=== PATIENT | male | born 1960 | race Hispanic/Latino ===

== ENCOUNTER 2019-10-15 12:04 | Emergency (ER) | payer MEDICARE ==
[~2019-10-15] VITALS: Ht 167.6 cm; Wt 90.3 kg
--- OUTSIDE RECORDS SUMMARY | 2019-10-15 12:10 | XMS REPORT ---
[facility] Address Unknown Phone Unavailable Care Team Providers Care Activities Specialist Name Role Phone ANAHI HUERTA Unavailable Unavailable Payers Payer Name Policy Type Policy Number Effective Date Expiration Date Problems This patient has no known problems. Allergies, Adverse Reactions, Alerts Allergy Name Allergy Type Status Severity Reaction(s) Onset Date Inactive Date Treating Clinician Comments No Known Allergies DA Active U 2019-05-20 00:00:00 No Known Allergies DA Active U 2018-01-11 00:00:00 No Known Allergies DA Active U 2017-09-13 00:00:00 Medications This patient has no known medications. Results Test Description Test Time Test Comments Text Results Atomic Results Result Comments GLUBED 2019-05-24 16:58:00 GLUBED (test code=GLUBED) 164 mg/dL 74-106 [facility] [id number] 12:05:00* Test Item Value Reference Range Comments GLUBED (test code=GLUBED) 172 mg/dL 74-106 [facility]formed by certified blacksmith hammer [facility] [id number] 11:39:00* Test Item Value Reference Range Comments GLUBED (test code=GLUBED) 139 mg/dL 74-106 Performed by certified blacksmith hammer operator at [facility] AB HEPATITIS B [id number] 11:10:00* Test Item Value Reference Range Comments AB HEPATITIS B SURFACE (test code=HBSAB) Reactive () Non Reactive: Inconsistent with immunity, less than 10 mIU/mL Reactive: Consistent with immunity, greater than 9.9 mIU/mLPerformed At: [facility] [id number] [place], [place] [id number] [place]o Monique MD Ph:[phone] [id number] 20:39:00* Test Item Value Reference Range Comments GLUBED (test code=GLUBED) 226 mg/dL 74-106 Performed by certified blacksmith hammer operator at [facility] [id number] 17:35:00* Test Item Value Reference Range Comments GLUBED (test code=GLUBED) 181 mg/dL 74-106 Performed by certified blacksmith hammer operator at [facility] - XR CHEST 2 [id number] 15:45:00 FAX: Phylicia Perla Massey: B St: ADM FAX: Sahil Zamudio MD [phone] Name: TESS QUEZADA [facility] : 1960 Age/S: 58/M [address] [facility] Unit #: [id number] Loc: V.2058 [place] [address] Phys: Phylicia Pearson MD Acct: [id number] Dis Date: Status: ADM IN PHONE #: [phone] Exam Date: 05/23/2019 1532 FAX #: [phone] Reason: follow up on pulm edema EXAMS: CPT CODE: [id number] XR CHEST 2 V 43242 REASON FOR EXAM: follow up on pulm edema Exam Order Date: 05/23/2019 12:00 AM Ordering Babak: Phylicia Pearson MD PROCEDURE: - XR CHEST 2 V COMPARISON: 2 view chest x-ray May 20, 2019 FINDINGS: There are small bilateral pleural effusions and there are opacities in the left lung base which may represent any combination of atelectatic changes and consolidations. However when compared to the prior examination, the lungs are better aerated. The cardiomediastinal silhouette is widened but stable in size. Degenerative changes throughout the spine and in the bilateral acromioclavicular joints appear similar to the previous study. The visua lized upper abdomen is within normal limits. IMPRESSION: Improved aeration of both lungs. However small bilateral pleural effusions and left lung base subsegmental atelectatic changes remain. at 1542 Reported and signed by: Alex Durbin MD CC: Yamileth Pearson MD; Sahil Her MD Technologist: CHEPE COSTA Trnnerd Date/Time/By: 05/23/2019 (8945) : By: Kristin DavisRR31 Orig Print D/T: S: 05/23/2019 (6666) PAG E 1 Signed Report GLUBED 2019-05-23 07:12:00* Test Item Value Reference Range Comments GLUBED (test code=GLUBED) 126 mg/dL 74-106 Performed by certified blacksmith hammer operator [facility] [id number] 21:41:00* Test Item Value Reference Range Comments GLUBED (test code=GLUBED) 179 mg/dL 74-106 Performed by certified blacksmith hammer operator [facility]~ [id number] 17:42:00* Test Item Value Reference Range Comments GLUBED (test code=GLUBED) 133 mg/dL 74-106 Performed by certified blacksmith hammer operator at [facility] [id number] 12:43:00* Test Item Value Reference Range Comments GLUBED (test code=GLUBED) 137 mg/dL 74-106 Performed by certified blacksmith hammer operator at [facility] [id number] 06:59:00* Test Item Value Reference Range Comments GLUBED (test code=GLUBED) 127 mg/dL 74-106 Performed by certified blacksmith hammer operator [facility] BASIC METABOLIC [id number] 05:05:00* Test Item Value Reference Range Comments SODIUM (test code=NA) 141 mmol/L 136-145 POTASSIUM (test code=K) 4.4 mmol/L 3.5-5.1 CHLORIDE (test code=CL) 103.0 mmol/L 98-107 CARBON DIOXIDE (test code=CO2) 28.0 mmol/L 21-32 ANION GAP (test code=GAP) 14.4 10-20 GLUCOSE (test code=GLU) 117 mg/dL 74-106 BLOOD UREA NITROGEN (test code=BUN) 42 mg/dL 7-18 GLOMERULAR FILTRATION RATE (test code=GFR) 8 mL/min >=60 Estimated GFR by using Modified MDRD formula.Chronic kidney disease is defined as either kidney damageor GFR <60 mL/min/1.73 m2 for >3 months. CREATININE (test code=CREAT) 7.40 mg/dL 0.7-1.3 BUN/CREATININE RATIO (test code=BUN/CREA) 5.7 10-20 CALCIUM (test code=CA) 8.0 mg/dL 8.5-10.1 CBC W/AUTO [id number] 04:50:00* Test Item Value Reference Range Comments WHITE BLOOD CELL (test code=WBC) 7.0 K/mm3 4.5-12.5 RED BLOOD CELL (test code=RBC) 3.26 mill/mm3 4.0-5.8 HEMOGLOBIN (test code=HGB) 9.7 gram/dL 13.0-17.5 HEMATOCRIT (test code=HCT) 31.8 % 42.0-52.0 MEAN CELL VOLUME (test code=MCV) 97.5 fL 80-98 MEAN CELL HGB (test code=MCH) 29.8 picogram 27.0-33.0 MEAN CELL HGB CONCETRATION (test code=MCHC) 30.5 gram/dL 33.0-36.0 RED CELL DISTRIBUTION WIDTH (test code=RDW) 13.0 % 11.6-16.2 RED CELL DISTRIBUTION WIDTH SD (test code=RDW-SD) 46.3 fL 37.0-51.0 PLATELET COUNT (test code=PLT) 198 K/mm3 150-450 MEAN PLATELET VOLUME (test code=MPV) 12.2 fL 6.7-11.0 NEUTROPHIL % (test code=NT%) 71.2 % 39.0-69.0 IMMATURE GRANULOCYTE % (test code=IG%) 0.4 % 0.0-5.0 LYMPHOCYTE % (test code=LY%) 14.1 % 25.0-55.0 MONOCYTE % (test code=MO%) 8.9 % 0.0-10.0 EOSINOPHIL % (test code=EO%) 4.7 % 0.0-5.0 BASOPHIL % (test code=BA%) 0.7 % 0.0-1.0 NUCLEATED RBC % (test code=NRBC%) 0.0 % 0-0 NEUTROPHIL # (test code=NT#) 4.94 K/mm3 1.8-7.7 IMMATURE GRANULOCYTE # (test code=IG#) 0.03 x10 3/uL 0-0.03 LYMPHOCYTE # (test code=LY#) 0.98 K/mm3 1.0-5.0 MONOCYTE # (test code=MO#) 0.62 K/mm3 0-0.8 EOSINOPHIL # (test code=EO#) 0.33 K/mm3 0.0-0.5 BASOPHIL # (test code=BA#) 0.05 K/mm3 0.0-0.2 NUCLEATED RBC # (test code=NRBC#) 0.00 K/mm3 0.0-0.1 [id number] 20:49:00* Test Item Value Reference Range Comments GLUBED (test code=GLUBED) 209 mg/dL 74-106 Performed by certified blacksmith hammer operator [facility]~ [id number] 17:20:00* Test Item Value Reference Range Comments GLUBED (test code=GLUBED) 140 mg/dL 74-106 Performed by certified blacksmith hammer operator at [facility] [id number] 14:08:00* Test Item Value Reference Range Comments GLUBED (test code=GLUBED) 131 mg/dL 74-106 Performed by certified blacksmith hammer operator at [facility] AG HEPAT B [id number] 06:45:00* Test Item Value Reference Range Comments AG HEPAT B SURF (test code=HBSAG) Nonreactive Index Nonreactive [id number] 05:37:00* Test Item Value Reference Range Comments GLUBED (test code=GLUBED) 130 mg/dL 74-106 Performed by certified blacksmith hammer operator at [facility] BASIC METABOLIC [id number] 03:18:00* Test Item Value Reference Range Comments SODIUM (test code=NA) 142 mmol/L 136-145 POTASSIUM (test code=K) 5.6 mmol/L 3.5-5.1 RESULT VERIFIED BY REPEAT ANALYSIS CHLORIDE (test code=CL) 105.0 mmol/L 98-107 CARBON DIOXIDE (test code=CO2) 22.0 mmol/L 21-32 ANION GAP (test code=GAP) 20.6 10-20 GLUCOSE (test code=GLU) 174 mg/dL 74-106 BLOOD UREA NITROGEN (test code=BUN) 79 mg/dL 7-18 GLOMERULAR FILTRATION RATE (test code=GFR) 5 mL/min >=60 Estimated GFR by using Modified MDRD formula.Chronic kidney disease is defined as either kidney damageor GFR <60 mL/min/1.73 m2 for >3 months. CREATININE (test code=CREAT) 10.40 mg/dL 0.7-1.3 BUN/CREATININE RATIO (test code=BUN/CREA) 7.6 10-20 CALCIUM (test code=CA) 8.7 mg/dL 8.5-10.1 B-TYPE NATRIURETIC [id number] 21:42:00* Test Item Value Reference Range Comments B-TYPE NATRIURETIC PEPTIDE (test code=BNP) 1880.69 pgram/mL 0-100 BASIC METABOLIC [id number] 21:36:00* Test Item Value Reference Range Comments SODIUM (test code=NA) 138 mmol/L 136-145 POTASSIUM (test code=K) 6.8 mmol/L 3.5-5.1 Results called to by ARTIS 05/20/19 2136Critical results verified and read back by Nurse? Y CHLORIDE (test code=CL) 104.0 mmol/L 98-107 CARBON DIOXIDE (test code=CO2) 24.0 mmol/L 21-32 ANION GAP (test code=GAP) 16.8 10-20 GLUCOSE (test code=GLU) 109 mg/dL 74-106 BLOOD UREA NITROGEN (test code=BUN) 72 mg/dL 7-18 GLOMERULAR FILTRATION RATE (test code=GFR) 5 mL/min >=60 Estimated GFR by using Modified MDRD formula.Chronic kidney disease is defined as either kidney damageor GFR <60 mL/min/1.73 m2 for >3 months. CREATININE (test code=CREAT) 10.10 mg/dL 0.7-1.3 BUN/CREATININE RATIO (test code=BUN/CREA) 7.1 10-20 CALCIUM (test code=CA) 8.1 mg/dL 8.5-10.1 HEPATIC FUNCTION [id number] 21:36:00* Test Item Value Reference Range Comments TOTAL PROTEIN (test code=PROT) 7.8 gram/dL 6.4-8.2 ALBUMIN (test code=ALB) 3.5 g/dL 3.4-5.0 GLOBULIN (test code=GLOB) 4.3 gram/dL 2.7-4.2 ALBUMIN/GLOBULIN RATIO (test code=A/G) 0.8 0.75-1.50 BILIRUBIN TOTAL (test code=BILT) 0.50 mg/dL 0.0-1.0 BILIRUBIN DIRECT (test code=BILD) 0.14 mg/dL 0.0-0.20 SGOT/AST (test code=AST) 7 IUnit/L 15-37 SGPT/ALT (test code=ALT) 11 IUnit/L 12-78 ALKALINE PHOSPHATASE TOTAL (test code=ALKP) 91 IUnit/L 45-117 Note change in reference range due to change in reagent. [id number] 21:36:00* Test Item Value Reference Range Comments LIPASE (test code=LIP) 288 U/L 73.0-393.0 [id number] 21:36:00* Test Item Value Reference Range Comments MAGNESIUM (test code=MAG) 2.4 mg/dL 1.8-2.4 [id number] 21:36:00* Test Item Value Reference Range Comments TROPONIN-I (test code=TROPI) <0.015 ng/mL 0-0.045 PROTHROMBIN [id number] 21:05:00* Test Item Value Reference Range Comments PROTHROMBIN TIME PATIENT (test code=PTP) 11.5 seconds 9.0-14.0 INTERNATIONAL NORMAL RATIO (test code=INR) 1.0 0.8-1.2 The therapeutic range for oral anticoagulant therapy formost indications is an international normalized ratio (INR)of between 2.0 and 3.0. The recommended therapeutic INRrange for various clinical situations is listed below: Clinical Situation INR range Pulmonary e mbolism treatment (2.0-3.0)Venous thrombosis treatmentVenous thrombosis prophylaxis (high risk surgery)Prevention of systemic embolism from: Acute myocardial infarction Valvular heart disease Atrial fibrillation Mechanical prosthetic heart valves (2.5-3.5) IS PATIENT ON ANTICOAGULANTS? NTHROMBOPLASTIN TIME [id number] 21:05:00* Test Item Value Reference Range Comments THROMBOPLASTIN TIME PARTIAL (test code=PTT) 32.9 seconds 25.0-36.5 IS PATIENT ON ANTICOAGULANTS? NCBC W/O [id number] 20:47:00* Test Item Value Reference Range Comments WHITE BLOOD CELL (test code=WBC) 9.5 K/mm3 4.5-12.5 RED BLOOD CELL (test code=RBC) 3.28 mill/mm3 4.0-5.8 HEMOGLOBIN (test code=HGB) 9.9 gram/dL 13.0-17.5 HEMATOCRIT (test code=HCT) 31.8 % 42.0-52.0 MEAN CELL VOLUME (test code=MCV) 97.0 fL 80-98 MEAN CELL HGB (test code=MCH) 30.2 picogram 27.0-33.0 MEAN CELL HGB CONCETRATION (test code=MCHC) 31.1 gram/dL 33.0-36.0 RED CELL DISTRIBUTION WIDTH (test code=RDW) 13.0 % 11.6-16.2 PLATELET COUNT (test code=PLT) 181 K/mm3 150-450 MEAN PLATELET VOLUME (test code=MPV) 12.1 fL 6.7-11.0 - XR CHEST 2 [id number] 19:44:00 FAX: Manisha Wadsworth [phone] Massey: B St: REG Name: TESS ARELLANO [facility] : [birth year] Age/S: 58/M [address] [facility] Unit #: [id number] Loc: V.[place] [address] Phys: Manisha Sepulveda MD Acct: [id number] Dis Date: Status: REG ER PHONE #: [phone] Exam Date: 05/20/20191931 FAX #: [phone] Reason: SOB EXAMS: CPT CODE: [id number] XR CHEST 2 V 94339 REASON FOR EXAM: SOB Exam Order Date: 05/20/2019 7:10 PM Ordering M.David: Manisha Sepulveda MD PROCEDURE: - XR CHEST 2 V COMPARISON: Frontal chest x-ray January 11, 2018 FINDINGS: There are small pleural effusions bilaterally with compressive atelectasis of the under lying lungs. There are also reticular opacities in both lungs with Pk B lines in the mid to lower lungs. Cardiomediastinal silhouette is enlarge d but stable in size. Degenerative changes of the spine and should ers are redemonstrated. The visualized upper abdomen is within nor mal limits. IMPRESSION: Findings of CHF with pul monary edema in the mid to lower lungs and small bilateral pleural effus ions. Superimposed infection would be difficult to exclude. at 1944 Reported and signed by: Alex Durbin MD CC: Manisha Sepulveda MD Technologist: Juli Lemus(R) Trnscrd Date/Time/By: 05/20/2019 (1943) : By: [email or web address] Orig Print D/T: S: 05/20/2019 (1946) PAGE 1 Signed Report - XR CHEST 2 V 2019-05-20 19:44:00 FAX: Manisha Wadsworth [phone] Massey: B St: ADM Name: TESS ARELLANO [facility] : [birth year] Age/S: 58/M [address] [facility] Unit #: [id number] Loc: V.2058 [place] [address] Phys: Manisha Sepulveda MD Acct: [id number] Dis Date: Status: ADM IN PHONE #: [phone] Exam Date: 05/20/20191931 FAX #: [phone] Reason: SOB EXAMS: CPT CODE: [id number] XR CHEST 2 V 22832 REASON FOR EXAM: SOB Exam Order Date: 05/20/2019 7:10 PM Ordering M.D.: Manisha Sepulveda MD PROCEDURE: - XR CHEST 2 V COMPARISON: Frontal chest x-ray January 11, 2018 FINDINGS: There are small pleural effusions bilaterally with compressive atelectasis of the under lying lungs. There are also reticular opacities in both lungs with Pk B lines in the mid to lower lungs. Cardiomediastinal silhouette is enlarge d but stable in size. Degenerative changes of the spine and should ers are redemonstrated. The visualized upper abdomen is within nor mal limits. IMPRESSION: Findings of CHF with pul monary edema in the mid to lower lungs and small bilateral pleural effus ions. Superimposed infection would be difficult to exclude. at 1944 Reported and signed by: Alex Durbin MD CC: Manisha Sepulveda MD Technologist: Juli Garcia) Trnscrd Date/Time/By: 05/20/2019 (1943) : By: [email or web address] Orig Print D/T: S: 05/20/2019 (1946) PAGE 1 Signed Report QUANTIFERON TEST 2018-12-11 15:11:00* Test Item Value Reference Range Comments QUANTIFERON TEST (test code=QFTT) Negative Negative The specimen received for QuantiFERON testing was incubatedby the ordering institution. Specific procedures outlinedin our Directory of Services and in the package insert forthe QuantiFERON Gold (In Tube) test must be followed toenable for proper stimulation of cells for the productionof interferon gamma.Performed At: [facility] [id number] Sanjai MD P h:[id number] HEPARIN INDUCED [id number] 11:09:00* Test Item Value Reference Range Comments HEPARIN INDUCED THROMBOCYTOPEN (test code=HIT) NEGATIVE NEGATIVE CBC W/AUTO [id number] 05:05:00* Test Item Value Reference Range Comments WHITE BLOOD CELL (test code=WBC) 5.5 K/mm3 4.5-12.5 RED BLOOD CELL (test code=RBC) 3.88 mill/mm3 4.0-5.8 HEMOGLOBIN (test code=HGB) 11.6 gram/dL 13.0-17.5 RESULT VERIFIED BY REPEAT ANALYSIS HEMATOCRIT (test code=HCT) 37.5 % 42.0-52.0 MEAN CELL VOLUME (test code=MCV) 96.6 fL 80-98 MEAN CELL HGB (test code=MCH) 29.9 picogram 27.0-33.0 MEAN CELL HGB CONCETRATION (test code=MCHC) 30.9 gram/dL 33.0-36.0 RED CELL DISTRIBUTION WIDTH (test code=RDW) 12.7 % 11.6-16.2 RED CELL DISTRIBUTION WIDTH SD (test code=RDW-SD) 44.8 fL 37.0-51.0 PLATELET COUNT (test code=PLT) 134 K/mm3 150-450 MEAN PLATELET VOLUME (test code=MPV) 12.6 fL 6.7-11.0 NEUTROPHIL % (test code=NT%) 58.1 % 39.0-69.0 IMMATURE GRANULOCYTE % (test code=IG%) 0.9 % 0.0-5.0 LYMPHOCYTE % (test code=LY%) 19.6 % 25.0-55.0 MONOCYTE % (test code=MO%) 15.8 % 0.0-10.0 EOSINOPHIL % (test code=EO%) 5.1 % 0.0-5.0 BASOPHIL % (test code=BA%) 0.5 % 0.0-1.0 NUCLEATED RBC % (test code=NRBC%) 0.0 % 0-0 NEUTROPHIL # (test code=NT#) 3.17 K/mm3 1.8-7.7 IMMATURE GRANULOCYTE # (test code=IG#) 0.05 x10 3/uL 0-0.03 LYMPHOCYTE # (test code=LY#) 1.07 K/mm3 1.0-5.0 MONOCYTE # (test code=MO#) 0.86 K/mm3 0-0.8 EOSINOPHIL # (test code=EO#) 0.28 K/mm3 0.0-0.5 BASOPHIL # (test code=BA#) 0.03 K/mm3 0.0-0.2 NUCLEATED RBC # (test code=NRBC#) 0.00 K/mm3 0.0-0.1 BASIC METABOLIC [id number] 12:26:00* Test Item Value Reference Range Comments SODIUM (test code=NA) 136 mmol/L 136-145 POTASSIUM (test code=K) 4.0 mmol/L 3.5-5.1 CHLORIDE (test code=CL) 99.0 mmol/L 98-107 CARBON DIOXIDE (test code=CO2) 21.0 mmol/L 21-32 ANION GAP (test code=GAP) 20.0 10-20 GLUCOSE (test code=GLU) 63 mg/dL 74-106 BLOOD UREA NITROGEN (test code=BUN) 52 mg/dL 7-18 RESULT VERIFIED BY REPEAT ANALYSIS GLOMERULAR FILTRATION RATE (test code=GFR) 6 mL/min >=60 Estimated GFR by using Modified MDRD formula.Chronic kidney disease is defined as either kidney damageor GFR <60 mL/min/1.73 m2 for >3 months. CREATININE (test code=CREAT) 9.30 mg/dL 0.7-1.3 BUN/CREATININE RATIO (test code=BUN/CREA) 5.6 10-20 CALCIUM (test code=CA) 7.5 mg/dL 8.5-10.1 - XR ABDOMEN AP 1 [id number] 09:34:00 FAX: Brandi Traylor MD [phone] Massey: B St: ADM FAX: Johnathan Gutierres [phone] Name: TESS QUEZADA [facility] : 1960 Age/S: 58/M [address] [facility] Unit #: [id number] Loc: V.5010 [place] [address] Phys: Johnathan Gutierres MD Acct: [id number] Dis Date: Status: ADM IN PHONE #: [phone] Exam Date: 12/09/2018904 FAX #: [phone] Reason: F/U SBO EXAMS: CPT CODE: [id number] XR ABDOMEN AP 1 V 10539 HISTORY: Small bowel obstruction TECHNIQUE: AP a bdomen x-ray COMPARISON: CT 12/06/18 FINDINGS: Mild ly improved dilated small bowel within the upper abdomen. Bowel gas observ ed within the colon. No intra-abdominal mass effect. No abnormal calcifica tions are observed. Mild degenerative changes of the spine and hips. IMPRESSION: Mildly improved dilated small bowel within the upper abdomen. at 0934 Reported and signed by: Alaina Rankin CC: Brandi Timmons MD; Johnathan Gutierres MD Technologist: LEXUS STEEN (R) Trn scrd Date/Time/By: 12/09/2018 (0934) : By: [email or web address] Orig Print D/T: S : 12/09/2018 (0937) PAGE 1 Signed Report BASIC METABOLIC [id number] 07:32:00* Test Item Value Reference Range Comments SODIUM (test code=NA) 136 mmol/L 136-145 POTASSIUM (test code=K) 4.0 mmol/L 3.5-5.1 CHLORIDE (test code=CL) 99.0 mmol/L 98-107 CARBON DIOXIDE (test code=CO2) 21.0 mmol/L 21-32 ANION GAP (test code=GAP) 20.0 10-20 GLUCOSE (test code=GLU) 63 mg/dL 74-106 BLOOD UREA NITROGEN (test code=BUN) 52 mg/dL 7-18 GLOMERULAR FILTRATION RATE (test code=GFR) 6 mL/min >=60 Estimated GFR by using Modified MDRD formula.Chronic kidney disease is defined as either kidney damageor GFR <60 mL/min/1.73 m2 for >3 months. CREATININE (test code=CREAT) 9.30 mg/dL 0.7-1.3 BUN/CREATININE RATIO (test code=BUN/CREA) 5.6 10-20 CALCIUM (test code=CA) 7.5 mg/dL 8.5-10.1 BASIC METABOLIC [id number] 10:49:00* Test Item Value Reference Range Comments SODIUM (test code=NA) 133 mmol/L 136-145 POTASSIUM (test code=K) 6.0 mmol/L 3.5-5.1 CHLORIDE (test code=CL) 94.0 mmol/L 98-107 CARBON DIOXIDE (test code=CO2) 17.0 mmol/L 21-32 ANION GAP (test code=GAP) 28.0 10-20 GLUCOSE (test code=GLU) 74 mg/dL 74-106 BLOOD UREA NITROGEN (test code=BUN) 98 mg/dL 7-18 GLOMERULAR FILTRATION RATE (test code=GFR) 4 mL/min >=60 Estimated GFR by using Modified MDRD formula.Chronic kidney disease is defined as either kidney damageor GFR <60 mL/min/1.73 m2 for >3 months. CREATININE (test code=CREAT) 14.10 mg/dL 0.7-1.3 BUN/CREATININE RATIO (test code=BUN/CREA) 7.0 10-20 CALCIUM (test code=CA) 7.7 mg/dL 8.5-10.1 CBC W/AUTO [id number] 05:50:00* Test Item Value Reference Range Comments WHITE BLOOD CELL (test code=WBC) 5.4 K/mm3 4.5-12.5 RED BLOOD CELL (test code=RBC) 4.50 mill/mm3 4.0-5.8 HEMOGLOBIN (test code=HGB) 13.6 gram/dL 13.0-17.5 HEMATOCRIT (test code=HCT) 44.9 % 42.0-52.0 MEAN CELL VOLUME (test code=MCV) 99.8 fL 80-98 MEAN CELL HGB (test code=MCH) 30.2 picogram 27.0-33.0 MEAN CELL HGB CONCETRATION (test code=MCHC) 30.3 gram/dL 33.0-36.0 RED CELL DISTRIBUTION WIDTH (test code=RDW) 13.0 % 11.6-16.2 RED CELL DISTRIBUTION WIDTH SD (test code=RDW-SD) 47.5 fL 37.0-51.0 PLATELET COUNT (test code=PLT) 155 K/mm3 150-450 MEAN PLATELET VOLUME (test code=MPV) 12.9 fL 6.7-11.0 NEUTROPHIL % (test code=NT%) 58.4 % 39.0-69.0 IMMATURE GRANULOCYTE % (test code=IG%) 0.7 % 0.0-5.0 LYMPHOCYTE % (test code=LY%) 18.5 % 25.0-55.0 MONOCYTE % (test code=MO%) 19.0 % 0.0-10.0 EOSINOPHIL % (test code=EO%) 2.8 % 0.0-5.0 BASOPHIL % (test code=BA%) 0.6 % 0.0-1.0 NUCLEATED RBC % (test code=NRBC%) 0.0 % 0-0 NEUTROPHIL # (test code=NT#) 3.16 K/mm3 1.8-7.7 IMMATURE GRANULOCYTE # (test code=IG#) 0.04 x10 3/uL 0-0.03 LYMPHOCYTE # (test code=LY#) 1.00 K/mm3 1.0-5.0 MONOCYTE # (test code=MO#) 1.03 K/mm3 0-0.8 EOSINOPHIL # (test code=EO#) 0.15 K/mm3 0.0-0.5 BASOPHIL # (test code=BA#) 0.03 K/mm3 0.0-0.2 NUCLEATED RBC # (test code=NRBC#) 0.00 K/mm3 0.0-0.1 CBC W/AUTO [id number] 05:39:00* Test Item Value Reference Range Comments WHITE BLOOD CELL (test code=WBC) K/mm3 4.5-12.5 RED BLOOD CELL (test code=RBC) mill/mm3 4.0-5.8 HEMOGLOBIN (test code=HGB) 13.6 gram/dL 13.0-17.5 HEMATOCRIT (test code=HCT) 44.9 % 42.0-52.0 MEAN CELL VOLUME (test code=MCV) fL 80-98 MEAN CELL HGB (test code=MCH) picogram 27.0-33.0 MEAN CELL HGB CONCETRATION (test code=MCHC) gram/dL 33.0-36.0 RED CELL DISTRIBUTION WIDTH (test code=RDW) % 11.6-16.2 RED CELL DISTRIBUTION WIDTH SD (test code=RDW-SD) fL 37.0-51.0 PLATELET COUNT (test code=PLT) K/mm3 150-450 MEAN PLATELET VOLUME (test code=MPV) fL 6.7-11.0 NEUTROPHIL % (test code=NT%) % 39.0-69.0 IMMATURE GRANULOCYTE % (test code=IG%) % 0.0-5.0 LYMPHOCYTE % (test code=LY%) % 25.0-55.0 MONOCYTE % (test code=MO%) % 0.0-10.0 EOSINOPHIL % (test code=EO%) % 0.0-5.0 BASOPHIL % (test code=BA%) % 0.0-1.0 NEUTROPHIL # (test code=NT#) K/mm3 1.8-7.7 LYMPHOCYTE # (test code=LY#) K/mm3 1.0-5.0 MONOCYTE # (test code=MO#) K/mm3 0-0.8 EOSINOPHIL # (test code=EO#) K/mm3 0.0-0.5 BASOPHIL # (test code=BA#) K/mm3 0.0-0.2 RETICULOCYTE [id number] 05:11:00* Test Item Value Reference Range Comments RETICULOCYTE COUNT (test code=RETICT) 1.8 % 0.5-2.0 RETIC COUNT ABSOLUTE (test code=RET#) 0.088 mill/mm3 0.016-0.095 IMMATURE RETICULOCYTE FRACTION (test code=IRF) 6.9 % 2.3-13.4 Values above normal range indicate an increase in RBCcellular response from bone marrow. RETICULOCYTE HGB EQUIVALENT (test code=RETHE) 34.3 pg 28.2-35.7 RET-He is a direct estimate of recent functionalavailability of iron in the cell, therefore, decreasedRET-He is indicative of iron deficiency. [id number] 05:11:00* Test Item Value Reference Range Comments ERYTHROPOIETIN (test code=JAYNA) 18.5 mIU/mL 2.6-18.5 Ina Skwiblel DxI 800 Immunoassay SystemValues obtained with different assay methods or kits cannotbe used interchangeably. Results cannot be interpreted asabsolute evidence of the presence or absence of malignantdisease.Performed At: [facility] [id number] Andrade MD Ph:[phone] CBC W/MANUAL [id number] 14:52:00* Test Item Value Reference Range Comments WHITE BLOOD CELL (test code=WBC) 5.1 K/mm3 4.5-12.5 RED BLOOD CELL (test code=RBC) 4.72 mill/mm3 4.0-5.8 HEMOGLOBIN (test code=HGB) 14.5 gram/dL 13.0-17.5 HEMATOCRIT (test code=HCT) 47.2 % 42.0-52.0 MEAN CELL VOLUME (test code=MCV) 100.0 fL 80-98 MEAN CELL HGB (test code=MCH) 30.7 picogram 27.0-33.0 MEAN CELL HGB CONCETRATION (test code=MCHC) 30.7 gram/dL 33.0-36.0 RED CELL DISTRIBUTION WIDTH (test code=RDW) 12.8 % 11.6-16.2 RED CELL DISTRIBUTION WIDTH SD (test code=RDW-SD) 47.4 fL 37.0-51.0 PLATELET COUNT (test code=PLT) 172 K/mm3 150-450 MEAN PLATELET VOLUME (test code=MPV) 13.1 fL 6.7-11.0 IMMATURE GRANULOCYTE % (test code=IG%) 0.2 % 0.0-5.0 NUCLEATED RBC % (test code=NRBC%) 0.0 % 0-0 NEUTROPHIL # (test code=NT#) 3.10 K/mm3 1.8-7.7 IMMATURE GRANULOCYTE # (test code=IG#) 0.01 x10 3/uL 0-0.03 LYMPHOCYTE # (test code=LY#) 0.80 K/mm3 1.0-5.0 MONOCYTE # (test code=MO#) 0.95 K/mm3 0-0.8 EOSINOPHIL # (test code=EO#) 0.21 K/mm3 0.0-0.5 BASOPHIL # (test code=BA#) 0.04 K/mm3 0.0-0.2 NUCLEATED RBC # (test code=NRBC#) 0.00 K/mm3 0.0-0.1 MANUAL DIFF REQUIRED (test code=MDIFF) YES STAIN ACCEPTABILITY (test code=STN ACCEPTABLE) STAIN ACCEPTABLE TOTAL CELLS COUNTED (test code=TCC) 112 #CELLS SEGMENTED NEUTROPHILS (test code=SEG) 58.9 % 39-69 BAND NEUTROPHIL (test code=BAND) 1.8 % 0-10 LYMPHOCYTE (test code=LYMPH) 9.8 % 25-55 REACTIVE LYMPH (test code=RELYMPH) 0 % MONOCYTE (test code=MON) 23.2 % 0-10 EOSINOPHIL (test code=EOS) 4.5 % 0.0-5.0 BASOPHIL (test code=BASO) 1.8 % 0-1.0 METAMYELOCYTE (test code=META) 0 % 0-0 MYELOCYTE (test code=MYELO) 0 % 0.0-0.0 PROMYELOCYTE (test code=PROM) 0 % 0-0 ANISOCYTOSIS (test code=ANISO) 1+ MACROCYTOSIS (test code=MACR) 1+ PLATELET ESTIMATE (test code=PLTEST) ADEQUATE PLATELET MORPHOLOGY (test code=PLTMORPH) NORMAL IMMATURE FORMS (test code=IMMAT) 0 % 0-0 BASIC METABOLIC [id number] 14:21:00* Test Item Value Reference Range Comments SODIUM (test code=NA) 131 mmol/L 136-145 POTASSIUM (test code=K) 5.3 mmol/L 3.5-5.1 CHLORIDE (test code=CL) 91.0 mmol/L 98-107 CARBON DIOXIDE (test code=CO2) 20.0 mmol/L 21-32 ANION GAP (test code=GAP) 25.3 10-20 GLUCOSE (test code=GLU) 86 mg/dL 74-106 BLOOD UREA NITROGEN (test code=BUN) 74 mg/dL 7-18 GLOMERULAR FILTRATION RATE (test code=GFR) 4 mL/min >=60 Estimated GFR by using Modified MDRD formula.Chronic kidney disease is defined as either kidney damageor GFR <60 mL/min/1.73 m2 for >3 months. CREATININE (test code=CREAT) 12.00 mg/dL 0.7-1.3 BUN/CREATININE RATIO (test code=BUN/CREA) 6.2 10-20 CALCIUM (test code=CA) 7.9 mg/dL 8.5-10.1 BASIC METABOLIC [id number] 14:20:00* Test Item Value Reference Range Comments SODIUM (test code=NA) 131 mmol/L 136-145 POTASSIUM (test code=K) 5.3 mmol/L 3.5-5.1 CHLORIDE (test code=CL) 91.0 mmol/L 98-107 CARBON DIOXIDE (test code=CO2) mmol/L 21-32 ANION GAP (test code=GAP) 10-20 GLUCOSE (test code=GLU) mg/dL 74-106 BLOOD UREA NITROGEN (test code=BUN) mg/dL 7-18 GLOMERULAR FILTRATION RATE (test code=GFR) mL/min >=60 CREATININE (test code=CREAT) mg/dL 0.7-1.3 BUN/CREATININE RATIO (test code=BUN/CREA) 10-20 CALCIUM (test code=CA) 7.9 mg/dL 8.5-10.1 CBC W/MANUAL [id number] 14:17:00* Test Item Value Reference Range Comments WHITE BLOOD CELL (test code=WBC) 5.1 K/mm3 4.5-12.5 RED BLOOD CELL (test code=RBC) 4.72 mill/mm3 4.0-5.8 HEMOGLOBIN (test code=HGB) 14.5 gram/dL 13.0-17.5 HEMATOCRIT (test code=HCT) 47.2 % 42.0-52.0 MEAN CELL VOLUME (test code=MCV) 100.0 fL 80-98 MEAN CELL HGB (test code=MCH) 30.7 picogram 27.0-33.0 MEAN CELL HGB CONCETRATION (test code=MCHC) 30.7 gram/dL 33.0-36.0 RED CELL DISTRIBUTION WIDTH (test code=RDW) 12.8 % 11.6-16.2 RED CELL DISTRIBUTION WIDTH SD (test code=RDW-SD) 47.4 fL 37.0-51.0 PLATELET COUNT (test code=PLT) 172 K/mm3 150-450 MEAN PLATELET VOLUME (test code=MPV) 13.1 fL 6.7-11.0 IMMATURE GRANULOCYTE % (test code=IG%) 0.2 % 0.0-5.0 NUCLEATED RBC % (test code=NRBC%) 0.0 % 0-0 NEUTROPHIL # (test code=NT#) 3.10 K/mm3 1.8-7.7 IMMATURE GRANULOCYTE # (test code=IG#) 0.01 x10 3/uL 0-0.03 LYMPHOCYTE # (test code=LY#) 0.80 K/mm3 1.0-5.0 MONOCYTE # (test code=MO#) 0.95 K/mm3 0-0.8 EOSINOPHIL # (test code=EO#) 0.21 K/mm3 0.0-0.5 BASOPHIL # (test code=BA#) 0.04 K/mm3 0.0-0.2 NUCLEATED RBC # (test code=NRBC#) 0.00 K/mm3 0.0-0.1 MANUAL DIFF REQUIRED (test code=MDIFF) YES STAIN ACCEPTABILITY (test code=STN ACCEPTABLE) TOTAL CELLS COUNTED (test code=TCC) #CELLS SEGMENTED NEUTROPHILS (test code=SEG) % 39-69 LYMPHOCYTE (test code=LYMPH) % 25-55 MONOCYTE (test code=MON) % 0-10 EOSINOPHIL (test code=EOS) % 0.0-5.0 CABOT RINGS (test code=CAB) MORPHOLOGY COMMENT (test code=MOC) PLATELET ESTIMATE (test code=PLTEST) PLATELET MORPHOLOGY (test code=PLTMORPH) CBC W/MANUAL [id number] 14:17:00* Test Item Value Reference Range Comments WHITE BLOOD CELL (test code=WBC) 5.1 K/mm3 4.5-12.5 RED BLOOD CELL (test code=RBC) 4.72 mill/mm3 4.0-5.8 HEMOGLOBIN (test code=HGB) 14.5 gram/dL 13.0-17.5 HEMATOCRIT (test code=HCT) 47.2 % 42.0-52.0 MEAN CELL VOLUME (test code=MCV) 100.0 fL 80-98 MEAN CELL HGB (test code=MCH) 30.7 picogram 27.0-33.0 MEAN CELL HGB CONCETRATION (test code=MCHC) 30.7 gram/dL 33.0-36.0 RED CELL DISTRIBUTION WIDTH (test code=RDW) 12.8 % 11.6-16.2 RED CELL DISTRIBUTION WIDTH SD (test code=RDW-SD) 47.4 fL 37.0-51.0 PLATELET COUNT (test code=PLT) 172 K/mm3 150-450 MEAN PLATELET VOLUME (test code=MPV) 13.1 fL 6.7-11.0 IMMATURE GRANULOCYTE % (test code=IG%) 0.2 % 0.0-5.0 NUCLEATED RBC % (test code=NRBC%) 0.0 % 0-0 NEUTROPHIL # (test code=NT#) 3.10 K/mm3 1.8-7.7 IMMATURE GRANULOCYTE # (test code=IG#) 0.01 x10 3/uL 0-0.03 LYMPHOCYTE # (test code=LY#) 0.80 K/mm3 1.0-5.0 MONOCYTE # (test code=MO#) 0.95 K/mm3 0-0.8 EOSINOPHIL # (test code=EO#) 0.21 K/mm3 0.0-0.5 BASOPHIL # (test code=BA#) 0.04 K/mm3 0.0-0.2 NUCLEATED RBC # (test code=NRBC#) 0.00 K/mm3 0.0-0.1 MANUAL DIFF REQUIRED (test code=MDIFF) YES STAIN ACCEPTABILITY (test code=STN ACCEPTABLE) TOTAL CELLS COUNTED (test code=TCC) #CELLS SEGMENTED NEUTROPHILS (test code=SEG) % 39-69 LYMPHOCYTE (test code=LYMPH) % 25-55 MONOCYTE (test code=MON) % 0-10 EOSINOPHIL (test code=EOS) % 0.0-5.0 CABOT RINGS (test code=CAB) MORPHOLOGY COMMENT (test code=MOC) PLATELET ESTIMATE (test code=PLTEST) PLATELET MORPHOLOGY (test code=PLTMORPH) CBC W/MANUAL [id number] 14:17:00* Test Item Value Reference Range Comments WHITE BLOOD CELL (test code=WBC) 5.1 K/mm3 4.5-12.5 RED BLOOD CELL (test code=RBC) 4.72 mill/mm3 4.0-5.8 HEMOGLOBIN (test code=HGB) 14.5 gram/dL 13.0-17.5 HEMATOCRIT (test code=HCT) 47.2 % 42.0-52.0 MEAN CELL VOLUME (test code=MCV) 100.0 fL 80-98 MEAN CELL HGB (test code=MCH) 30.7 picogram 27.0-33.0 MEAN CELL HGB CONCETRATION (test code=MCHC) 30.7 gram/dL 33.0-36.0 RED CELL DISTRIBUTION WIDTH (test code=RDW) 12.8 % 11.6-16.2 RED CELL DISTRIBUTION WIDTH SD (test code=RDW-SD) 47.4 fL 37.0-51.0 PLATELET COUNT (test code=PLT) 172 K/mm3 150-450 MEAN PLATELET VOLUME (test code=MPV) 13.1 fL 6.7-11.0 IMMATURE GRANULOCYTE % (test code=IG%) 0.2 % 0.0-5.0 NUCLEATED RBC % (test code=NRBC%) 0.0 % 0-0 NEUTROPHIL # (test code=NT#) 3.10 K/mm3 1.8-7.7 IMMATURE GRANULOCYTE # (test code=IG#) 0.01 x10 3/uL 0-0.03 LYMPHOCYTE # (test code=LY#) 0.80 K/mm3 1.0-5.0 MONOCYTE # (test code=MO#) 0.95 K/mm3 0-0.8 EOSINOPHIL # (test code=EO#) 0.21 K/mm3 0.0-0.5 BASOPHIL # (test code=BA#) 0.04 K/mm3 0.0-0.2 NUCLEATED RBC # (test code=NRBC#) 0.00 K/mm3 0.0-0.1 MANUAL DIFF REQUIRED (test code=MDIFF) YES STAIN ACCEPTABILITY (test code=STN ACCEPTABLE) TOTAL CELLS COUNTED (test code=TCC) #CELLS SEGMENTED NEUTROPHILS (test code=SEG) % 39-69 LYMPHOCYTE (test code=LYMPH) % 25-55 MONOCYTE (test code=MON) % 0-10 EOSINOPHIL (test code=EOS) % 0.0-5.0 MORPHOLOGY COMMENT (test code=MOC) PLATELET ESTIMATE (test code=PLTEST) PLATELET MORPHOLOGY (test code=PLTMORPH) CBC W/MANUAL [id number] 14:17:00* Test Item Value Reference Range Comments WHITE BLOOD CELL (test code=WBC) 5.1 K/mm3 4.5-12.5 RED BLOOD CELL (test code=RBC) 4.72 mill/mm3 4.0-5.8 HEMOGLOBIN (test code=HGB) 14.5 gram/dL 13.0-17.5 HEMATOCRIT (test code=HCT) 47.2 % 42.0-52.0 MEAN CELL VOLUME (test code=MCV) 100.0 fL 80-98 MEAN CELL HGB (test code=MCH) 30.7 picogram 27.0-33.0 MEAN CELL HGB CONCETRATION (test code=MCHC) 30.7 gram/dL 33.0-36.0 RED CELL DISTRIBUTION WIDTH (test code=RDW) 12.8 % 11.6-16.2 RED CELL DISTRIBUTION WIDTH SD (test code=RDW-SD) 47.4 fL 37.0-51.0 PLATELET COUNT (test code=PLT) 172 K/mm3 150-450 MEAN PLATELET VOLUME (test code=MPV) 13.1 fL 6.7-11.0 IMMATURE GRANULOCYTE % (test code=IG%) 0.2 % 0.0-5.0 NUCLEATED RBC % (test code=NRBC%) 0.0 % 0-0 NEUTROPHIL # (test code=NT#) 3.10 K/mm3 1.8-7.7 IMMATURE GRANULOCYTE # (test code=IG#) 0.01 x10 3/uL 0-0.03 LYMPHOCYTE # (test code=LY#) 0.80 K/mm3 1.0-5.0 MONOCYTE # (test code=MO#) 0.95 K/mm3 0-0.8 EOSINOPHIL # (test code=EO#) 0.21 K/mm3 0.0-0.5 BASOPHIL # (test code=BA#) 0.04 K/mm3 0.0-0.2 NUCLEATED RBC # (test code=NRBC#) 0.00 K/mm3 0.0-0.1 MANUAL DIFF REQUIRED (test code=MDIFF) YES STAIN ACCEPTABILITY (test code=STN ACCEPTABLE) TOTAL CELLS COUNTED (test code=TCC) #CELLS SEGMENTED NEUTROPHILS (test code=SEG) % 39-69 LYMPHOCYTE (test code=LYMPH) % 25-55 MONOCYTE (test code=MON) % 0-10 MORPHOLOGY COMMENT (test code=MOC) PLATELET ESTIMATE (test code=PLTEST) PLATELET MORPHOLOGY (test code=PLTMORPH) CBC W/MANUAL [id number] 14:17:00* Test Item Value Reference Range Comments WHITE BLOOD CELL (test code=WBC) 5.1 K/mm3 4.5-12.5 RED BLOOD CELL (test code=RBC) 4.72 mill/mm3 4.0-5.8 HEMOGLOBIN (test code=HGB) 14.5 gram/dL 13.0-17.5 HEMATOCRIT (test code=HCT) 47.2 % 42.0-52.0 MEAN CELL VOLUME (test code=MCV) 100.0 fL 80-98 MEAN CELL HGB (test code=MCH) 30.7 picogram 27.0-33.0 MEAN CELL HGB CONCETRATION (test code=MCHC) 30.7 gram/dL 33.0-36.0 RED CELL DISTRIBUTION WIDTH (test code=RDW) 12.8 % 11.6-16.2 RED CELL DISTRIBUTION WIDTH SD (test code=RDW-SD) 47.4 fL 37.0-51.0 PLATELET COUNT (test code=PLT) 172 K/mm3 150-450 MEAN PLATELET VOLUME (test code=MPV) 13.1 fL 6.7-11.0 IMMATURE GRANULOCYTE % (test code=IG%) 0.2 % 0.0-5.0 NUCLEATED RBC % (test code=NRBC%) 0.0 % 0-0 NEUTROPHIL # (test code=NT#) 3.10 K/mm3 1.8-7.7 IMMATURE GRANULOCYTE # (test code=IG#) 0.01 x10 3/uL 0-0.03 LYMPHOCYTE # (test code=LY#) 0.80 K/mm3 1.0-5.0 MONOCYTE # (test code=MO#) 0.95 K/mm3 0-0.8 EOSINOPHIL # (test code=EO#) 0.21 K/mm3 0.0-0.5 BASOPHIL # (test code=BA#) 0.04 K/mm3 0.0-0.2 NUCLEATED RBC # (test code=NRBC#) 0.00 K/mm3 0.0-0.1 MANUAL DIFF REQUIRED (test code=MDIFF) YES STAIN ACCEPTABILITY (test code=STN ACCEPTABLE) TOTAL CELLS COUNTED (test code=TCC) #CELLS SEGMENTED NEUTROPHILS (test code=SEG) % 39-69 LYMPHOCYTE (test code=LYMPH) % 25-55 MONOCYTE (test code=MON) % 0-10 EOSINOPHIL (test code=EOS) % 0.0-5.0 CABOT RINGS (test code=CAB) MORPHOLOGY COMMENT (test code=MOC) PLATELET ESTIMATE (test code=PLTEST) PLATELET MORPHOLOGY (test code=PLTMORPH) CBC W/AUTO [id number] 14:05:00* Test Item Value Reference Range Comments WHITE BLOOD CELL (test code=WBC) K/mm3 4.5-12.5 RED BLOOD CELL (test code=RBC) mill/mm3 4.0-5.8 HEMOGLOBIN (test code=HGB) 14.5 gram/dL 13.0-17.5 HEMATOCRIT (test code=HCT) 47.2 % 42.0-52.0 MEAN CELL VOLUME (test code=MCV) fL 80-98 MEAN CELL HGB (test code=MCH) picogram 27.0-33.0 MEAN CELL HGB CONCETRATION (test code=MCHC) gram/dL 33.0-36.0 RED CELL DISTRIBUTION WIDTH (test code=RDW) % 11.6-16.2 RED CELL DISTRIBUTION WIDTH SD (test code=RDW-SD) fL 37.0-51.0 PLATELET COUNT (test code=PLT) K/mm3 150-450 MEAN PLATELET VOLUME (test code=MPV) fL 6.7-11.0 NEUTROPHIL % (test code=NT%) % 39.0-69.0 IMMATURE GRANULOCYTE % (test code=IG%) % 0.0-5.0 LYMPHOCYTE % (test code=LY%) % 25.0-55.0 MONOCYTE % (test code=MO%) % 0.0-10.0 EOSINOPHIL % (test code=EO%) % 0.0-5.0 BASOPHIL % (test code=BA%) % 0.0-1.0 NEUTROPHIL # (test code=NT#) K/mm3 1.8-7.7 LYMPHOCYTE # (test code=LY#) K/mm3 1.0-5.0 MONOCYTE # (test code=MO#) K/mm3 0-0.8 EOSINOPHIL # (test code=EO#) K/mm3 0.0-0.5 BASOPHIL # (test code=BA#) K/mm3 0.0-0.2 - XR CHEST 1 [id number] 11:44:00 FAX: Brandi Traylor MD [phone] [place]: St: ADM FAX: Y Jaida Jarquin MD [phone] Name: TESS QUEZADA [facility] : 1960 Age/S: 58/M [address] Unit #: [id number] Loc: V.5010 [place] [address] Phys: Jaida Jarquin MD Acct: [id number] Dis Date: Status: ADM IN PHONE #: [phone] Exam Date: 12/07/2018 1059 FAX #: [phone] Reason: NG TUBE PLACEMENT EXAMS: CPT CODE: [id number] XR CHEST 1 V 68464 HISTORY: NG tube placement. COMPARISON: December 06, 2018. NG tube extends below the diaphragm in good position. Small left effusion with subsegmental atelectasis. Small right effusion as well. No infiltrates or congestion. Cardiac silhouette is mildly enlarged. IMPRESSION: Small left effusion with subsegmental atelectasis and small right effusion without infiltrates or congestion. at 1144 Reported and signed by: Adrien Hernandez M.D. CC: Brandi Timmons MD; Jaida Jarquin MD Technologist: FERNANDA PENN RT(R); STUDENT TECHNOLOGIST Trnscrd Date/Time/By: 12/07/2018 (1149) : By: [email or web address] Orig Print D/T: S: 12/07/2018 (0581) PAGE 1 Signed Report - CT ABD PELVIS [id number] 17:22:00 Name: TESS QUEZADA [facility] : 1960 Age/S: 58 / M [address] Unit #: [id number] Loc: [place] [address] Phys: Vincenzo Jarquin MD Acct: [id number] Di s Date: Status: ADM IN PHONE #: Exam Date: 12/06/20189 FAX #: Reason: continued abdominal pain EXAMS: CPT CODE: [id number] CT ABD PELVIS W/CONT 36832 REASON FOR EXAM: continued abdominal pain EXAM ORDER DATE: 12/06/2018 1:44 PM Ordering M.David: Jaida Jarquin MD PROCEDURE: - CT ABD PE LVIS W/CONT COMPARISON: 12/04/2018 FINDINGS: CT image s of the abdomen and pelvis were obtained with IV and without oral contras t at 5mm. Dose modulation, iterative reconstruction, and/or weight based a djustment of the MA/KV was utilized to reduce the radiation dose to as low as reasonably achievable. Intravenous contrast: 100cc of O mnipaque 370. The liver, spleen, pancreas are grossly within cadence l limits. The gallbladder is unremarkable by CT. The kidney s are within normal limits. The urinary bladder is contracted The colon, small bowel, and stomach are within normal limits without ev idence of obstruction. The appendix is unremarkable. No evidence of free air or free fluid. IMPRESSION: 1. Small left p leural effusion and atelectasis in the left base 2. Interval worsening of the small bowel dilatation with a probable transition zone in the rig ht renal pelvis consistent with worsening of the mechanical small bowel obstruction. No evidence of free air or free fluid Electron ically Signed by Babak Sandoval on 12/06/2018 at 1722 Repo rted and signed by: Alejandro Sandoval M.D. PAGE 1 Signed Report (CONTINUED) Name: TESS QUEZADA [facility] : 1960 Age/S: 58 / M [address] Unit #: [id number] Loc: [place] X [address] Phys: Jaida Jarquin MD Acct: [id number] Dis Date: Status: ADM IN PHONE #: [phone] Exam Date: 12/06/20181 FAX #: [phone] Reason: continued abdominal pain EXAMS: CPT CODE: [id number] CT ABD PELVIS W/CONT 45349 <Continued> CC: Brandi Timmons MD; Jaida Jarquin MD Technologist:Geneva Goyal RT(R),CT CTDI: DLP: Trnscb Date/Time: 12/06/2018 (1722) [email or web address] Orig Print D/T: S: 12/07/2018 (6414) CTDI: DLP: PAGE 2 Signed Report - XR CHEST 1 [id number] 09:43:00 FAX: Brandi Traylor MD [phone] [place]: St: ADM FAX: Ronnell Dodge MD [phone] Name: TESS QUEZADA [facility] : 1960 Age/S: 58/M [address] [facility] Unit #: [id number] Loc: V.5010 [place] [address] Phys: Ronnell Muñoz MD Acct: [id number] Dis Date: Status: ADM IN PHONE #: [phone] Exam Date: 12/06/2018 0850 FAX #: [phone] Reason: effusion EXAMS: CPT CODE: [id number] XR CHEST 1 V 86926 HISTORY: Effusion. COMPARISON: December 04, 2018. Small left effusion is unchanged with subsegmental atelectasis. No infiltrates or congestion. Trace right effusion with dependent changes. Cardiomegaly. IMPRESSION: Small left effusion with subsegmental atelectasis and trace right effusion with dependent changes on unchanged. at 0943 Reported and signed by: Adrien Hernandez M.D. CC: Brandi Timmons MD; Ronnell Muñoz MD Technologist: Juli Lemus(R); STUDENT TECHNOLOGIST [facility] Date/Time/By: 12/06/2018 (0943) : By: [email or web address] Orig Print D/T: S: 12/06/2018 (4275) PAGE 1 Signed Report BASIC METABOLIC [id number] 08:12:00* Test Item Value Reference Range Comments SODIUM (test code=NA) 130 mmol/L 136-145 POTASSIUM (test code=K) 6.1 mmol/L 3.5-5.1 Results called to [id number] by V.LAB.SRAVANI 12/06/18 0759Critical results verified and read back by Nurse? Y CHLORIDE (test code=CL) 88.0 mmol/L 98-107 CARBON DIOXIDE (test code=CO2) 23.0 mmol/L 21-32 ANION GAP (test code=GAP) 25.1 10-20 GLUCOSE (test code=GLU) 111 mg/dL 74-106 BLOOD UREA NITROGEN (test code=BUN) 99 mg/dL 7-18 GLOMERULAR FILTRATION RATE (test code=GFR) 4 mL/min >=60 Estimated GFR by using Modified MDRD formula.Chronic kidney disease is defined as either kidney damageor GFR <60 mL/min/1.73 m2 for >3 months. CREATININE (test code=CREAT) 14.30 mg/dL 0.7-1.3 BUN/CREATININE RATIO (test code=BUN/CREA) 6.9 10-20 CALCIUM (test code=CA) 7.9 mg/dL 8.5-10.1 BASIC METABOLIC [id number] 07:59:00* Test Item Value Reference Range Comments SODIUM (test code=NA) 130 mmol/L 136-145 POTASSIUM (test code=K) 6.1 mmol/L 3.5-5.1 Results called to [id number] by V.LAB.SRAVANI 12/06/18 0759Critical results verified and read back by Nurse? Y CHLORIDE (test code=CL) 88.0 mmol/L 98-107 CARBON DIOXIDE (test code=CO2) mmol/L 21-32 ANION GAP (test code=GAP) 10-20 GLUCOSE (test code=GLU) mg/dL 74-106 BLOOD UREA NITROGEN (test code=BUN) mg/dL 7-18 GLOMERULAR FILTRATION RATE (test code=GFR) mL/min >=60 CREATININE (test code=CREAT) mg/dL 0.7-1.3 BUN/CREATININE RATIO (test code=BUN/CREA) 10-20 CALCIUM (test code=CA) mg/dL 8.5-10.1 RETICULOCYTE [id number] 07:31:00* Test Item Value Reference Range Comments RETICULOCYTE COUNT (test code=RETICT) 1.8 % 0.5-2.0 RETIC COUNT ABSOLUTE (test code=RET#) 0.088 mill/mm3 0.016-0.095 IMMATURE RETICULOCYTE FRACTION (test code=IRF) 6.9 % 2.3-13.4 Values above normal range indicate an increase in RBCcellular response from bone marrow. RETICULOCYTE HGB EQUIVALENT (test code=RETHE) 34.3 pg 28.2-35.7 RET-He is a direct estimate of recent functionalavailability of iron in the cell, therefore, decreasedRET-He is indicative of iron deficiency. [id number] 07:31:00* Test Item Value Reference Range Comments ERYTHROPOIETIN (test code=JAYNA) mUnit/mL CBC W/O [id number] 07:02:00* Test Item Value Reference Range Comments WHITE BLOOD CELL (test code=WBC) 3.9 K/mm3 4.5-12.5 RED BLOOD CELL (test code=RBC) 4.87 mill/mm3 4.0-5.8 HEMOGLOBIN (test code=HGB) 15.2 gram/dL 13.0-17.5 HEMATOCRIT (test code=HCT) 47.8 % 42.0-52.0 MEAN CELL VOLUME (test code=MCV) 98.2 fL 80-98 MEAN CELL HGB (test code=MCH) 31.2 picogram 27.0-33.0 MEAN CELL HGB CONCETRATION (test code=MCHC) 31.8 gram/dL 33.0-36.0 RED CELL DISTRIBUTION WIDTH (test code=RDW) 12.9 % 11.6-16.2 PLATELET COUNT (test code=PLT) 182 K/mm3 150-450 MEAN PLATELET VOLUME (test code=MPV) 12.7 fL 6.7-11.0 CBC W/O [id number] 07:01:00* Test Item Value Reference Range Comments WHITE BLOOD CELL (test code=WBC) K/mm3 4.5-12.5 RED BLOOD CELL (test code=RBC) mill/mm3 4.0-5.8 HEMOGLOBIN (test code=HGB) 15.2 gram/dL 13.0-17.5 HEMATOCRIT (test code=HCT) 47.8 % 42.0-52.0 MEAN CELL VOLUME (test code=MCV) fL 80-98 MEAN CELL HGB (test code=MCH) picogram 27.0-33.0 MEAN CELL HGB CONCETRATION (test code=MCHC) gram/dL 33.0-36.0 RED CELL DISTRIBUTION WIDTH (test code=RDW) % 11.6-16.2 PLATELET COUNT (test code=PLT) K/mm3 150-450 MEAN PLATELET VOLUME (test code=MPV) fL 6.7-11.0 [id number] 06:29:00* Test Item Value Reference Range Comments GLUBED (test code=GLUBED) 125 mg/dL 74-106 Performed by certified blacksmith hammer operator at [facility] BASIC METABOLIC [id number] 18:39:00* Test Item Value Reference Range Comments SODIUM (test code=NA) 131 mmol/L 136-145 POTASSIUM (test code=K) 5.8 mmol/L 3.5-5.1 CHLORIDE (test code=CL) 86.0 mmol/L 98-107 CARBON DIOXIDE (test code=CO2) 28.0 mmol/L 21-32 ANION GAP (test code=GAP) 22.8 10-20 GLUCOSE (test code=GLU) 126 mg/dL 74-106 BLOOD UREA NITROGEN (test code=BUN) 84 mg/dL 7-18 GLOMERULAR FILTRATION RATE (test code=GFR) 4 mL/min >=60 Estimated GFR by using Modified MDRD formula.Chronic kidney disease is defined as either kidney damageor GFR <60 mL/min/1.73 m2 for >3 months. CREATININE (test code=CREAT) 13.00 mg/dL 0.7-1.3 BUN/CREATININE RATIO (test code=BUN/CREA) 6.5 10-20 CALCIUM (test code=CA) 8.3 mg/dL 8.5-10.1 [id number] 14:08:00* Test Item Value Reference Range Comments GLUBED (test code=GLUBED) 138 mg/dL 74-106 Performed by certified blacksmith hammer operator at [facility] CBC W/MANUAL [id number] 13:59:00* Test Item Value Reference Range Comments WHITE BLOOD CELL (test code=WBC) 3.3 K/mm3 4.5-12.5 RED BLOOD CELL (test code=RBC) 5.38 mill/mm3 4.0-5.8 HEMOGLOBIN (test code=HGB) 16.1 gram/dL 13.0-17.5 HEMATOCRIT (test code=HCT) 54.5 % 42.0-52.0 MEAN CELL VOLUME (test code=MCV) 101.3 fL 80-98 RESULT VERIFIED BY REPEAT ANALYSIS MEAN CELL HGB (test code=MCH) 29.9 picogram 27.0-33.0 MEAN CELL HGB CONCETRATION (test code=MCHC) 29.5 gram/dL 33.0-36.0 RED CELL DISTRIBUTION WIDTH (test code=RDW) 13.3 % 11.6-16.2 RED CELL DISTRIBUTION WIDTH SD (test code=RDW-SD) 50.5 fL 37.0-51.0 PLATELET COUNT (test code=PLT) 197 K/mm3 150-450 MEAN PLATELET VOLUME (test code=MPV) 13.3 fL 6.7-11.0 IMMATURE GRANULOCYTE % (test code=IG%) 0.3 % 0.0-5.0 NUCLEATED RBC % (test code=NRBC%) 0.0 % 0-0 NEUTROPHIL # (test code=NT#) 1.86 K/mm3 1.8-7.7 IMMATURE GRANULOCYTE # (test code=IG#) 0.01 x10 3/uL 0-0.03 LYMPHOCYTE # (test code=LY#) 0.66 K/mm3 1.0-5.0 MONOCYTE # (test code=MO#) 0.66 K/mm3 0-0.8 EOSINOPHIL # (test code=EO#) 0.06 K/mm3 0.0-0.5 BASOPHIL # (test code=BA#) 0.03 K/mm3 0.0-0.2 NUCLEATED RBC # (test code=NRBC#) 0.00 K/mm3 0.0-0.1 MANUAL DIFF REQUIRED (test code=MDIFF) YES STAIN ACCEPTABILITY (test code=STN ACCEPTABLE) STAIN ACCEPTABLE TOTAL CELLS COUNTED (test code=TCC) 114 #CELLS SEGMENTED NEUTROPHILS (test code=SEG) 49.1 % 39-69 BAND NEUTROPHIL (test code=BAND) 0 % 0-10 LYMPHOCYTE (test code=LYMPH) 15.8 % 25-55 REACTIVE LYMPH (test code=RELYMPH) 0 % MONOCYTE (test code=MON) 28.1 % 0-10 EOSINOPHIL (test code=EOS) 5.3 % 0.0-5.0 BASOPHIL (test code=BASO) 1.7 % 0-1.0 METAMYELOCYTE (test code=META) 0 % 0-0 MYELOCYTE (test code=MYELO) 0 % 0.0-0.0 PROMYELOCYTE (test code=PROM) 0 % 0-0 POIKILOCYTOSIS (test code=POIK) 1+ ANISOCYTOSIS (test code=ANISO) 3+ MACROCYTOSIS (test code=MACR) 3+ DONITA CELLS (test code=DONITA) 1+ NONE PLATELET ESTIMATE (test code=PLTEST) ADEQUATE PLATELET MORPHOLOGY (test code=PLTMORPH) NORMAL IMMATURE FORMS (test code=IMMAT) 0 % 0-0 CBC W/MANUAL [id number] 12:28:00* Test Item Value Reference Range Comments WHITE BLOOD CELL (test code=WBC) 3.3 K/mm3 4.5-12.5 RED BLOOD CELL (test code=RBC) 5.38 mill/mm3 4.0-5.8 HEMOGLOBIN (test code=HGB) 16.1 gram/dL 13.0-17.5 HEMATOCRIT (test code=HCT) 54.5 % 42.0-52.0 MEAN CELL VOLUME (test code=MCV) 101.3 fL 80-98 RESULT VERIFIED BY REPEAT ANALYSIS MEAN CELL HGB (test code=MCH) 29.9 picogram 27.0-33.0 MEAN CELL HGB CONCETRATION (test code=MCHC) 29.5 gram/dL 33.0-36.0 RED CELL DISTRIBUTION WIDTH (test code=RDW) 13.3 % 11.6-16.2 RED CELL DISTRIBUTION WIDTH SD (test code=RDW-SD) 50.5 fL 37.0-51.0 PLATELET COUNT (test code=PLT) 197 K/mm3 150-450 MEAN PLATELET VOLUME (test code=MPV) 13.3 fL 6.7-11.0 IMMATURE GRANULOCYTE % (test code=IG%) 0.3 % 0.0-5.0 NUCLEATED RBC % (test code=NRBC%) 0.0 % 0-0 NEUTROPHIL # (test code=NT#) 1.86 K/mm3 1.8-7.7 IMMATURE GRANULOCYTE # (test code=IG#) 0.01 x10 3/uL 0-0.03 LYMPHOCYTE # (test code=LY#) 0.66 K/mm3 1.0-5.0 MONOCYTE # (test code=MO#) 0.66 K/mm3 0-0.8 EOSINOPHIL # (test code=EO#) 0.06 K/mm3 0.0-0.5 BASOPHIL # (test code=BA#) 0.03 K/mm3 0.0-0.2 NUCLEATED RBC # (test code=NRBC#) 0.00 K/mm3 0.0-0.1 MANUAL DIFF REQUIRED (test code=MDIFF) YES STAIN ACCEPTABILITY (test code=STN ACCEPTABLE) TOTAL CELLS COUNTED (test code=TCC) #CELLS SEGMENTED NEUTROPHILS (test code=SEG) % 39-69 LYMPHOCYTE (test code=LYMPH) % 25-55 MONOCYTE (test code=MON) % 0-10 EOSINOPHIL (test code=EOS) % 0.0-5.0 CABOT RINGS (test code=CAB) MORPHOLOGY COMMENT (test code=MOC) PLATELET ESTIMATE (test code=PLTEST) PLATELET MORPHOLOGY (test code=PLTMORPH) CBC W/MANUAL [id number] 12:28:00* Test Item Value Reference Range Comments WHITE BLOOD CELL (test code=WBC) 3.3 K/mm3 4.5-12.5 RED BLOOD CELL (test code=RBC) 5.38 mill/mm3 4.0-5.8 HEMOGLOBIN (test code=HGB) 16.1 gram/dL 13.0-17.5 HEMATOCRIT (test code=HCT) 54.5 % 42.0-52.0 MEAN CELL VOLUME (test code=MCV) 101.3 fL 80-98 RESULT VERIFIED BY REPEAT ANALYSIS MEAN CELL HGB (test code=MCH) 29.9 picogram 27.0-33.0 MEAN CELL HGB CONCETRATION (test code=MCHC) 29.5 gram/dL 33.0-36.0 RED CELL DISTRIBUTION WIDTH (test code=RDW) 13.3 % 11.6-16.2 RED CELL DISTRIBUTION WIDTH SD (test code=RDW-SD) 50.5 fL 37.0-51.0 PLATELET COUNT (test code=PLT) 197 K/mm3 150-450 MEAN PLATELET VOLUME (test code=MPV) 13.3 fL 6.7-11.0 IMMATURE GRANULOCYTE % (test code=IG%) 0.3 % 0.0-5.0 NUCLEATED RBC % (test code=NRBC%) 0.0 % 0-0 NEUTROPHIL # (test code=NT#) 1.86 K/mm3 1.8-7.7 IMMATURE GRANULOCYTE # (test code=IG#) 0.01 x10 3/uL 0-0.03 LYMPHOCYTE # (test code=LY#) 0.66 K/mm3 1.0-5.0 MONOCYTE # (test code=MO#) 0.66 K/mm3 0-0.8 EOSINOPHIL # (test code=EO#) 0.06 K/mm3 0.0-0.5 BASOPHIL # (test code=BA#) 0.03 K/mm3 0.0-0.2 NUCLEATED RBC # (test code=NRBC#) 0.00 K/mm3 0.0-0.1 MANUAL DIFF REQUIRED (test code=MDIFF) YES STAIN ACCEPTABILITY (test code=STN ACCEPTABLE) TOTAL CELLS COUNTED (test code=TCC) #CELLS SEGMENTED NEUTROPHILS (test code=SEG) % 39-69 LYMPHOCYTE (test code=LYMPH) % 25-55 MONOCYTE (test code=MON) % 0-10 EOSINOPHIL (test code=EOS) % 0.0-5.0 CABOT RINGS (test code=CAB) MORPHOLOGY COMMENT (test code=MOC) PLATELET ESTIMATE (test code=PLTEST) PLATELET MORPHOLOGY (test code=PLTMORPH) CBC W/MANUAL [id number] 12:28:00* Test Item Value Reference Range Comments WHITE BLOOD CELL (test code=WBC) 3.3 K/mm3 4.5-12.5 RED BLOOD CELL (test code=RBC) 5.38 mill/mm3 4.0-5.8 HEMOGLOBIN (test code=HGB) 16.1 gram/dL 13.0-17.5 HEMATOCRIT (test code=HCT) 54.5 % 42.0-52.0 MEAN CELL VOLUME (test code=MCV) 101.3 fL 80-98 RESULT VERIFIED BY REPEAT ANALYSIS MEAN CELL HGB (test code=MCH) 29.9 picogram 27.0-33.0 MEAN CELL HGB CONCETRATION (test code=MCHC) 29.5 gram/dL 33.0-36.0 RED CELL DISTRIBUTION WIDTH (test code=RDW) 13.3 % 11.6-16.2 RED CELL DISTRIBUTION WIDTH SD (test code=RDW-SD) 50.5 fL 37.0-51.0 PLATELET COUNT (test code=PLT) 197 K/mm3 150-450 MEAN PLATELET VOLUME (test code=MPV) 13.3 fL 6.7-11.0 IMMATURE GRANULOCYTE % (test code=IG%) 0.3 % 0.0-5.0 NUCLEATED RBC % (test code=NRBC%) 0.0 % 0-0 NEUTROPHIL # (test code=NT#) 1.86 K/mm3 1.8-7.7 IMMATURE GRANULOCYTE # (test code=IG#) 0.01 x10 3/uL 0-0.03 LYMPHOCYTE # (test code=LY#) 0.66 K/mm3 1.0-5.0 MONOCYTE # (test code=MO#) 0.66 K/mm3 0-0.8 EOSINOPHIL # (test code=EO#) 0.06 K/mm3 0.0-0.5 BASOPHIL # (test code=BA#) 0.03 K/mm3 0.0-0.2 NUCLEATED RBC # (test code=NRBC#) 0.00 K/mm3 0.0-0.1 MANUAL DIFF REQUIRED (test code=MDIFF) YES STAIN ACCEPTABILITY (test code=STN ACCEPTABLE) TOTAL CELLS COUNTED (test code=TCC) #CELLS SEGMENTED NEUTROPHILS (test code=SEG) % 39-69 LYMPHOCYTE (test code=LYMPH) % 25-55 MONOCYTE (test code=MON) % 0-10 EOSINOPHIL (test code=EOS) % 0.0-5.0 MORPHOLOGY COMMENT (test code=MOC) PLATELET ESTIMATE (test code=PLTEST) PLATELET MORPHOLOGY (test code=PLTMORPH) CBC W/MANUAL [id number] 12:28:00* Test Item Value Reference Range Comments WHITE BLOOD CELL (test code=WBC) 3.3 K/mm3 4.5-12.5 RED BLOOD CELL (test code=RBC) 5.38 mill/mm3 4.0-5.8 HEMOGLOBIN (test code=HGB) 16.1 gram/dL 13.0-17.5 HEMATOCRIT (test code=HCT) 54.5 % 42.0-52.0 MEAN CELL VOLUME (test code=MCV) 101.3 fL 80-98 RESULT VERIFIED BY REPEAT ANALYSIS MEAN CELL HGB (test code=MCH) 29.9 picogram 27.0-33.0 MEAN CELL HGB CONCETRATION (test code=MCHC) 29.5 gram/dL 33.0-36.0 RED CELL DISTRIBUTION WIDTH (test code=RDW) 13.3 % 11.6-16.2 RED CELL DISTRIBUTION WIDTH SD (test code=RDW-SD) 50.5 fL 37.0-51.0 PLATELET COUNT (test code=PLT) 197 K/mm3 150-450 MEAN PLATELET VOLUME (test code=MPV) 13.3 fL 6.7-11.0 IMMATURE GRANULOCYTE % (test code=IG%) 0.3 % 0.0-5.0 NUCLEATED RBC % (test code=NRBC%) 0.0 % 0-0 NEUTROPHIL # (test code=NT#) 1.86 K/mm3 1.8-7.7 IMMATURE GRANULOCYTE # (test code=IG#) 0.01 x10 3/uL 0-0.03 LYMPHOCYTE # (test code=LY#) 0.66 K/mm3 1.0-5.0 MONOCYTE # (test code=MO#) 0.66 K/mm3 0-0.8 EOSINOPHIL # (test code=EO#) 0.06 K/mm3 0.0-0.5 BASOPHIL # (test code=BA#) 0.03 K/mm3 0.0-0.2 NUCLEATED RBC # (test code=NRBC#) 0.00 K/mm3 0.0-0.1 MANUAL DIFF REQUIRED (test code=MDIFF) YES STAIN ACCEPTABILITY (test code=STN ACCEPTABLE) TOTAL CELLS COUNTED (test code=TCC) #CELLS SEGMENTED NEUTROPHILS (test code=SEG) % 39-69 LYMPHOCYTE (test code=LYMPH) % 25-55 MONOCYTE (test code=MON) % 0-10 MORPHOLOGY COMMENT (test code=MOC) PLATELET ESTIMATE (test code=PLTEST) PLATELET MORPHOLOGY (test code=PLTMORPH) CBC W/MANUAL [id number] 12:28:00* Test Item Value Reference Range Comments WHITE BLOOD CELL (test code=WBC) 3.3 K/mm3 4.5-12.5 RED BLOOD CELL (test code=RBC) 5.38 mill/mm3 4.0-5.8 HEMOGLOBIN (test code=HGB) 16.1 gram/dL 13.0-17.5 HEMATOCRIT (test code=HCT) 54.5 % 42.0-52.0 MEAN CELL VOLUME (test code=MCV) 101.3 fL 80-98 RESULT VERIFIED BY REPEAT ANALYSIS MEAN CELL HGB (test code=MCH) 29.9 picogram 27.0-33.0 MEAN CELL HGB CONCETRATION (test code=MCHC) 29.5 gram/dL 33.0-36.0 RED CELL DISTRIBUTION WIDTH (test code=RDW) 13.3 % 11.6-16.2 RED CELL DISTRIBUTION WIDTH SD (test code=RDW-SD) 50.5 fL 37.0-51.0 PLATELET COUNT (test code=PLT) 197 K/mm3 150-450 MEAN PLATELET VOLUME (test code=MPV) 13.3 fL 6.7-11.0 IMMATURE GRANULOCYTE % (test code=IG%) 0.3 % 0.0-5.0 NUCLEATED RBC % (test code=NRBC%) 0.0 % 0-0 NEUTROPHIL # (test code=NT#) 1.86 K/mm3 1.8-7.7 IMMATURE GRANULOCYTE # (test code=IG#) 0.01 x10 3/uL 0-0.03 LYMPHOCYTE # (test code=LY#) 0.66 K/mm3 1.0-5.0 MONOCYTE # (test code=MO#) 0.66 K/mm3 0-0.8 EOSINOPHIL # (test code=EO#) 0.06 K/mm3 0.0-0.5 BASOPHIL # (test code=BA#) 0.03 K/mm3 0.0-0.2 NUCLEATED RBC # (test code=NRBC#) 0.00 K/mm3 0.0-0.1 MANUAL DIFF REQUIRED (test code=MDIFF) YES STAIN ACCEPTABILITY (test code=STN ACCEPTABLE) TOTAL CELLS COUNTED (test code=TCC) #CELLS SEGMENTED NEUTROPHILS (test code=SEG) % 39-69 LYMPHOCYTE (test code=LYMPH) % 25-55 MONOCYTE (test code=MON) % 0-10 EOSINOPHIL (test code=EOS) % 0.0-5.0 CABOT RINGS (test code=CAB) MORPHOLOGY COMMENT (test code=MOC) PLATELET ESTIMATE (test code=PLTEST) PLATELET MORPHOLOGY (test code=PLTMORPH) - XR ABDOMEN AP 1 [id number] 10:01:00 FAX: Brandi Traylor MD [phone] [place]: St: ADM FAX: Jaida Cancino MD [phone] Name: TESS QUEZADA [facility] : 1960 Age/S: 58/M [address] [facility] Unit #: [id number] Loc: [address] [address] Phys: Jaida Jarquin MD Acct: [id number] Dis Date: Status: ADM IN PHONE #: [phone] Exam Date: 12/05/2018 0945 FAX #: [phone] Reason: SBO FOLLOW UP EXAMS: CPT CODE: [id number] XR ABDOMEN AP 1 V 83696 HISTORY: Small bowel obstruction follow-up. COMPAR VU: Previous day. Decreasing small and large bowel obstruction s uggesting improvement in the obstruction. Air is noted in the rectum. 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 IMPRESSION: Decreasing small and large bowel distention especially the small bowel distention suggestive of improving or resolving obstruction. Continued close follow-up recommended. at 1001 Reported and signed b y: Adrien Hernandez M.D. CC: Brnadi Timmons MD; Jose Jarquin MD Technologist: FERNANDA PENN RT(R) Trnscrd Date/Time/By: 12/05/2018 (1001) : By: [email or web address] Orig Print D/T: S: 12/05/2018 (1004) PAGE 1 Signed Report - XR ABDOMEN AP 1 V 2018-12-04 20:03:00 FAX: Brandi Traylor MD [phone] [place]: St: [facility] FAX: Johnathan Gutierres [phone] Name: TESS QUEZADA [facility] : 1960 Age/S: 58/M [address] [facility] Unit #: [id number] Loc: [address] [place] [address] Phys: Johnathan Gutierres MD Acct: [id number] Dis Date: Status: ADM IN PHONE #: [phone] Exam Date: 12/04/2018 191 FAX #: [phone] Reason: SBO F/U. PATIENT HAD BMS THIS MORNING EXAMS: CPT CODE: [id number] XR ABDOMEN AP 1 V 02869 REASON FOR EXAM: SBO F/U. PATIENT HAD BMS THIS MORNING EXAM ORDER DATE: 12/04/2018 10:19 AM Attending Babak: Johnathan Henderson MD PROCEDURE: - XR ABDOMEN AP 1 V COMPARISON: FINDINGS: One view of the abdomen obtained at 7:19 PM. Scattered fecal material is seen in the colon. No evidence of organomegaly or evidence of ascites. No evidence of free air. IMPRESSION: Minimal gaseous distention of small bowel loops in the upper abdomen suggestive of ileus. at 2002 Reported and signed by: Alejandro Sandoval M.D. CC: Brandi Timmons MD; Johnathan Gutierres MD Technologist: Carlie Lemus(R) Trnscrd Date/Time/By: 12/04/2018 (2002) : By: Shaquille Orig Print D/T: S: 12/04/2018 (2005) PAGE 1 Signed Report - US CHST W/[id number] 16:25:00 Name: TESS QUEZADA [facility] : 1960 Age/S: 58 / M [address] Unit #: [id number] Loc: [place] [address] Phys: Johnathan Jacobson Si, MD Acct: [id number] Di s Date: Status: ADM IN PHONE #: [phone] Exam Date: 12/04/2018 1612 FAX #: [phone] Reason: LEFT LOCULATED PLEURAL EFFUSION EXAMS: CPT CODE: [id number] US CHST W/MED IASTINUM 57854 REASON FOR EXAM: LEFT LOCULATED PLEURAL EFFUSION EXAM ORDER DATE: 12/04/2018 10:03 A M Attending Prashanth.: Johnathan Henderson MD PROCEDU RE: - US CHST W/MEDIASTINUM FINDINGS: Limited focal ultrasound pe rformed for assessment of pleural effusions IMPRESSION: Sm all left pleural effusion Electronically Signed by Babak Sandoval on 0 12/04/2018 at 1625 Reported and signed by: Alejandro Sandoval M.D. CC: Brandi Timmons MD; Johnathan Gutierres MD Technologist: Clinton Alejandre Trnneb Date/Time: 12/04/2018 (162) [email or web address] Orig Print D/T: S: 12/04/2018 (7228) Probe: PAGE 1 Signed Report AG HEPAT B [id number] 10:13:00* Test Item Value Reference Range Comments AG HEPAT B SURF (test code=HBSAG) Nonreactive Index Nonreactive - XR CHEST 1 [id number] 07:56:00 FAX: Brandi Traylor MD [phone] [place]: B St: ADM [facility] [birth year] Age/S: 58/M [address] Unit #: [id number] Loc: V[address] [place] [address] Phys: Brandi Timmons MD Acct: [id number] Dis Date: Status: ADM IN PHONE #: [phone] Exam Date: 12/04/2018 0749 FAX #: [phone] Reason: NG TUBE PLACEMENT EXAMS: CPT CODE: [id number] XR CHEST 1 V 77754 HISTORY: NG TUBE PLACEMENT; small bowel obstruction TECHNIQUE: AP chest x-ray COMPARIS ON: 10/03/17 IMPRESSION: Small bilateral pleura l effusions and mild subsegmental atelectasis. Mild cardiomegaly. Athero sclerotic vascular calcification of the thoracic aorta. Degenerative marian nges of the spine. NG tube positioned within the proximal sto mach; side port within the distal esophagus. Elect ronically Signed by Alaina Burciaga D.O. on 12/04/2018 at 0756 Reported and signed by: Alaina Burciaga D.O. CC: Farzaneh Timmons sa, MD Technologist: VADIM PEREA JR Trnscrd Date/Time/By: 12/04/2018 (0756) : By: fabiana [email or web address] Orig Print D/T: S: 12/04/2018 (0808) PAGE 1 Signed Report HGBA1C 2018-12-04 07:50:00* Test Item Value Reference Range Comments GLYCOSYLATED HEMOGLOBIN (HA1C) (test code=GLYHGB) 6.0 % HbA1 4.8-6.0 ESTIMATED AVERAGE GLUCOSE (test code=EAG) 126 MG/DL - CT ABD PELVIS [id number] 04:30:00 Name: TESS QUEZADA [facility] : 1960 Age/S: 58 / M [address] Unit #: [id number] Loc: [place] [address] Phys: Toño Dumont MD Acct: [id number] Dis Date: Status: REG ER PHONE #: [phone] Exam Date: 12/04/2018 0405 FAX #: [phone] Reason: abd pain, epigastric EXAMS: CPT CODE: [id number] CT ABD PELVIS W/CONT 12887 CT abdomen and pelvis with IV contrast. Indication: Abdominal pain, epigastric Location: R16 Comparison: None available Technique: CT images of the abdomen and pelvis were obtained from the diaphragm to the pubic symphysis after the administration of intravenous contrast contrast. Coronal reformats are provided. One or more of the following dose reduction techniques were used: Automated exposure control, adjustment of the mA and/or kV according to patient size, and/or utilization of iterative reconstruction technique. Findings: Lungs bases: A loculated left pleural effusion is noted, nonspecific Liver: Unremarkable. Gallbladder: Unremarkable. Pancreas: Unremarkable. Spleen: Unremarkable. Adrenal glands: Unremarkable. Kidneys: Questionable bilateral renal atrophy Bowel: There is a small bowel obstruction with transition point seen along the left lateral pelvic sidewall Peritoneum: No ascites. No free air Skeletal: No acute fracture.. Impression: There is a small bowel obstruction with transition point seen along the left lateral pelvic sidewall A loculated left pleural effusion is noted, nonspecific Findings concerning for bilateral renal atrophy with absent excretion of contrast seen on delayed imaging Additional findings as above PAGE 1 Signed Report (CONTINUED) Nam e: TESS QUEZADA [facility] : Age/S: 58 / M [address] [facility] Unit #: [id number] Loc: [place] [address] Phys: Toño Dumont MD Acct: [id number] Dis Han e: Status: REG ER PHONE #: [phone] Exam Date: 12/04/2018 0405 FAX #: [phone] Reason: abd pain, epigastric EXAMS: CPT CODE: [id number] CT ABD PELVIS W/CONT 83586 <Continued> at 0430 Reported and signed by: Nimo Carrington M.D. CC: Toño Dumont MD Technologist:MONICA CORDOVA CTDI: DLP: Trnscb Date/Time: 12/04/2018 (429) [email or web address] Orig Print D/T: S: 12/04/2018 (432) CTDI: DLP: PAGE 2 Signed Report BASIC METABOLIC [id number] 02:51:00* Test Item Value Reference Range Comments SODIUM (test code=NA) 134 mmol/L 136-145 POTASSIUM (test code=K) 5.6 mmol/L 3.5-5.1 CHLORIDE (test code=CL) 84.0 mmol/L 98-107 CARBON DIOXIDE (test code=CO2) 28.0 mmol/L 21-32 ANION GAP (test code=GAP) 27.6 10-20 GLUCOSE (test code=GLU) 183 mg/dL 74-106 BLOOD UREA NITROGEN (test code=BUN) 95 mg/dL 7-18 GLOMERULAR FILTRATION RATE (test code=GFR) 3 mL/min >=60 Estimated GFR by using Modified MDRD formula.Chronic kidney disease is defined as either kidney damageor GFR <60 mL/min/1.73 m2 for >3 months. CREATININE (test code=CREAT) 14.50 mg/dL 0.7-1.3 BUN/CREATININE RATIO (test code=BUN/CREA) 6.6 10-20 CALCIUM (test code=CA) 9.3 mg/dL 8.5-10.1 HEPATIC FUNCTION [id number] 02:51:00* Test Item Value Reference Range Comments TOTAL PROTEIN (test code=PROT) 10.2 gram/dL 6.4-8.2 ALBUMIN (test code=ALB) 5.2 g/dL 3.4-5.0 GLOBULIN (test code=GLOB) 5.0 gram/dL 2.7-4.2 ALBUMIN/GLOBULIN RATIO (test code=A/G) 1.0 0.75-1.50 BILIRUBIN TOTAL (test code=BILT) 0.60 mg/dL 0.0-1.0 BILIRUBIN DIRECT (test code=BILD) 0.14 mg/dL 0.0-0.20 SGOT/AST (test code=AST) 12 IUnit/L 15-37 SGPT/ALT (test code=ALT) 16 IUnit/L 12-78 ALKALINE PHOSPHATASE TOTAL (test code=ALKP) 117 IUnit/L 45-117 Note change in reference range due to change in reagent. [id number] 02:51:00* Test Item Value Reference Range Comments LIPASE (test code=LIP) 203 U/L 73.0-393.0 URINALYSIS [id number] 02:42:00* Test Item Value Reference Range Comments UA COLOR (test code=COLU) YELLOW YELLOW UA APPEARANCE (test code=APPU) SLIGHT CLOUDY CLEAR UA GLUCOSE DIPSTICK (test code=DGLUU) NEGATIVE mg/dL NEGATIVE UA BILIRUBIN DIPSTICK (test code=BILU) NEGATIVE mg/dL NEGATIVE UA KETONE DIPSTICK (test code=KETU) NEGATIVE mg/dL NEGATIVE UA SPECIFIC GRAVITY (test code=SGU) 1.018 1.001-1.035 UA BLOOD DIPSTICK (test code=MICHAEL) 1+ (Small) mg/dL NEGATIVE UA PH DIPSTICK (test code=ЕКАТЕРИНА) 5.0 5.0-8.0 UA PROTEIN DIPSTICK (test code=PROU) >500 (3+) mg/dL NEGATIVE UA UROBILINIOGEN DIPSTICK (test code=URO) NEGATIVE mg/dL NEGATIVE UA NITRITE DIPSTICK (test code=SUNNY) NEGATIVE NEGATIVE UA LEUKOCYTE ESTERASE W REFLEX (test code=LEUUR) NEGATIVE Felisa/uL NEGATIVE UA WBC (test code=WBCU) 6-10 per HPF 0-5 UA RBC (test code=RBCU) 6-10 #/HPF 0-5 UA EPITHELIAL CELLS (test code=EPIU) FEW per HPF FEW UA BACTERIA (test code=BACU) FEW #/HPF NONE UA HYALINE CAST (test code=HYALU) 3-5 #/LPF 0-5 Urine Source? Clean CatchCBC W/O [id number] 02:34:00* Test Item Value Reference Range Comments WHITE BLOOD CELL (test code=WBC) K/mm3 4.5-12.5 RED BLOOD CELL (test code=RBC) mill/mm3 4.0-5.8 HEMOGLOBIN (test code=HGB) 16.6 gram/dL 13.0-17.5 HEMATOCRIT (test code=HCT) % 42.0-52.0 MEAN CELL VOLUME (test code=MCV) fL 80-98 MEAN CELL HGB (test code=MCH) picogram 27.0-33.0 MEAN CELL HGB CONCETRATION (test code=MCHC) gram/dL 33.0-36.0 RED CELL DISTRIBUTION WIDTH (test code=RDW) % 11.6-16.2 PLATELET COUNT (test code=PLT) K/mm3 150-450 MEAN PLATELET VOLUME (test code=MPV) fL 6.7-11.0 CBC W/O [id number] 02:34:00* Test Item Value Reference Range Comments WHITE BLOOD CELL (test code=WBC) 6.7 K/mm3 4.5-12.5 RED BLOOD CELL (test code=RBC) 5.51 mill/mm3 4.0-5.8 HEMOGLOBIN (test code=HGB) 16.6 gram/dL 13.0-17.5 HEMATOCRIT (test code=HCT) 53.0 % 42.0-52.0 MEAN CELL VOLUME (test code=MCV) 96.2 fL 80-98 MEAN CELL HGB (test code=MCH) 30.1 picogram 27.0-33.0 MEAN CELL HGB CONCETRATION (test code=MCHC) 31.3 gram/dL 33.0-36.0 RED CELL DISTRIBUTION WIDTH (test code=RDW) 13.3 % 11.6-16.2 PLATELET COUNT (test code=PLT) 238 K/mm3 150-450 MEAN PLATELET VOLUME (test code=MPV) 12.4 fL 6.7-11.0 LIPID [id number] 09:16:00* Test Item Value Reference Range Comments TRIGLYCERIDES (BEAKER) (test lecw=886) 82 mg/dL CHOLESTEROL (BEAKER) (test cyfc=226) 170 mg/dL HDL CHOLESTEROL (BEAKER) (test lsix=601) 41 mg/dL LDL CHOLESTEROL CALCULATED (BEAKER) (test axkq=389) 113 mg/dL Triglyceride Reference Range: Low Risk <150 Borderline 150-199 High Risk 200-499 Very High Risk >=500Cholesterol Reference Range: Low Risk <200 Borderline 200-239 High Risk >240HDL Cholesterol Reference Range: Low Risk >=60 High Risk <40LDL Cholesterol Reference Range: Optimal <100 Near Optimal 100-129 Borderline 130-159 High 160-189 Very High >=190 - MRI BRAIN W/O [id number] 17:44:00 FAX: Odin Mora [phone] [place]: B St: [place]K Name: TESS ARELLANO [facility] : [birth year] Age/S: 57/M [address] Unit #: [id number] Loc: [place] [address] Phys: Odin Harding MD Acct: [id number] Dis Date: Status: UNK PHONE #: [phone] Exam Date: 01/11/2018 1730 FAX #: [phone] Reason: NEUROLOGICAL DEFICIT EXAMS: CPT CODE: [id number] MRI BRAIN W/O CONTRAST 83708 REASON FOR EXAM: NEUROLOGICAL DEFICIT Exam Order Date: 01/11/2018 7:00 AM Attending Babak: Odin Harding MD Procedure: - MRI BRAIN W/O CONTRAST Comparison: FINDINGS: Axial, sagittal, and coronal i mages of the head were obtained using T1, T2 weighted, inversion recovery, and gradient echo sequences. The diffusion images are within normal limi ts without evidence of acute infarct. No IV gadolinium was given. The sagittal images show normal pituitary, cerebellum, and brain stem. No evidence of suprasellar mass. The axial T2, inversion recove ry, and gradient echo images show no evidence of intra or extra axial mass . The ventricles, cisterns, and sulci are unremarkable. No evidence of hem orrhage. The cerebellar pontine angle area is within normal limits . There is no evidence of mass noted. The axial T1 images sh ow no evidence of mass. No evidence of old infarct. Small punctat e nonspecific bright signal intensity seen in the deep white matter The coronal images show normal optic chiasm. IMPRESSION: NORMAL BRAIN. at 8700 Reported and signed by: Alejandro Sandoval M.D. CC: Odin Mathews MD Technologist: ALVAREZ MIRANDART - MRI Trnscrd Date/Time/By: 01/11/2018 (17 44) : By: Shaquille Orig Print D/T: S: 01/11/2018 (8397) PAGE 1 Signed Report - XR CHEST 1 [id number] 09:48:00 FAX: Odin Mora [phone] [place]: St: K Name: TESS ARELLANO [facility] : [birth year] Age/S: 57/M [address] Unit #: [id number] Loc: [place] [address] Phys: Odin Harding MD Acct: [id number] Dis Date: Status: UNK PHONE #: [phone] Exam Date: 01/11/2018 0950 FAX #: [phone] Reason: CODE STROKE EXAMS: CPT CODE: [id number] XR CHEST 1 V 41699 HISTORY: CODE STROKE TECHNIQUE: AP chest x-ray COMPARISON: None FINDINGS: Small bilateral pleural effusion with basilar subsegmental atelectasis. Mild cardiomegaly. Atherosclerotic vascular calcification of the thoracic aorta. Thoracic spondylosis. IMPRESSION: Small bilateral pleural effusion with basilar subsegmental atel ectasis. at 09 48 Reported and signed by: Alaina Burciaga D.O. CC: Odin Harding MD Technologist: Opal STEEN(R)(CT) Trnscrd Date/Time/By: 01/11/2018 (0948) : By: [email or web address] Orig Print D/T: S: 01/11/2018 (0997) PAGE 1 Signed Report - CT HEAD/BRAIN W/O [id number] 09:45:00 Name: TESS QUEZADA [facility] : 1960 Age/S: 57 / M [address] [facility] Unit #: [id number] Loc: [place] [address] Phys: Odin Harding MD Acct: [id number] Di s Date: Status: UNK PHONE #: Exam Date: 01/11/2018 09 FAX #: Reason: AMS EXAMS: CPT CODE: [id number] CT HEAD/BRAIN W/O CONT 90981 HISTORY: Altered mental status TECHNIQUE: Noncontrast 2.[address] of the head. Examina tion acquired within 24 hours of arrival. Automated exposure control for dose reduction; DLP: 863 mGy-cm. COMPARISON: None FINDINGS: No acute hemorrhage. No intracranial mass, mass effe ct, or midline shift. No CT evidence of acute infarct. Trace periventricul ar chronic microvascular ischemic changes. No hydrocephalus. Mild parenchy mal atrophy. No extra-axial fluid collection. Atherosclerotic vascular calcification of the carotid siphons. Visualized paranasal sinu ses are clear. Mastoid air cells and middle ear cavities are clear. Right lens implant. Calvarium and skull base are intact. IMPRESSION: No CT evidence of acute infarct. MRI would be more sensitive if there is continued clinical concern. Called to Dr. Donald lynch at 0945 hours. No acute intracranial hemorrhage. Trace findings of chronic microvascular ischemia. Atherosclerotic vascular disease. at 0945 Reported and signed by: Alaina Zimmerman CC: Odin Harding MD Technologi st:SAMEER BOJORQUEZ RT(R); Brianna P CTDI: DLP: Trnscb Date/Time: (0945) [email or web address] Orig Print D/T: S: 01/11/2018 ( 6250) PAGE 1 Signed Report VARICELLA ZOSTER ANTIBODY, [id number] 14:52:00* Test Item Value Reference Range Comments VARICELLA ZOSTER IGG (AL) (GUERAAKER) (test eqqi=0226) 2.4 Al VARICELLA ZOSTER RESULT INTERPRETATIONS: <=0.8 Al Nonreactive: Presumed non-immune to VZV 0.9-1.0 Al Equivocal >=1.1 Al Reactive: Presumed immune to VZVCYTOMEGALOVIRUS ANTIBODY, [id number] 14:48:00* Test Item Value Reference Range Comments CYTOMEGALOVIRUS IGG ANTIBODY (BEAKER) (test chhr=812) Positive CYTOMEGALOVIRUS ANTIBODY, [id number] 14:48:00* Test Item Value Reference Range Comments CYTOMEGALOVIRUS IGM ANTIBODY (BEAKER) (test raim=164) Negative EBV-VCA ANTIBODY, [id number] 14:48:00* Test Item Value Reference Range Comments [place] VCA IGG (BEAKER) (test mwza=238) Positive EBV-VCA ANTIBODY, [id number] 14:48:00* Test Item Value Reference Range Comments [place] VCA IGM (BEAKER) (test rjln=971) Negative URINE [id number] 15:37:00* Test Item Value Reference Range Comments CULTURE (BEAKER) (test fmmu=7600) 50-59,000 col/mL skin morro [id number] 09:28:00* Test Item Value Reference Range Comments RPR SCREEN (BEAKER) (test didp=483) Nonreactive Nonreactive U/S, ABDOMINAL, [id number] 16:16:00Reason for Exam:->esrd; eval for renal txpFINAL REPORT TECHNIQUE: Grayscale ultrasound of the abdomen. INDICATION: 57-year-old man with stage renal disease for renal transplant evaluation. COMPARISON: None. FINDINGS: MIDLINE VASCULATURE: The visualized inferior vena cava is patent. Portal vein is patent. The maximum visualized aortic diameter is 2.2 cm. LIVER: The liver is normal in size and echogenicity. Smooth liver contour. No focal lesions. BILIARY:Gallbladder: No gallstones or sludge. No gallbladder wall thickening, pericholecystic fluid, or distention. Negative sonographic Hughes sign.Common bile duct measures 0.5 cm, within normal limits. No intrahepatic biliary ductal dilatation. PANCREAS: Incompletely visualized due to overlying bowel gas. SPLEEN: No splenomegaly. PERITONEUM: No free fluid. KIDNEYS: Both kidneys are mildly echogenic and measure 9.8 cm in length. No hydronephrosis. No sonographically evident solid mass lesion. IMPRESSION:Medical renal disease bilaterally. Otherwise, unremarkable abdominal ultrasound. Signed: Blanca Campbell Verified Date/Time: 12/27/2017 16:16:17 Reading Location: [address] Radiology Reading Room , CYSTOGRAM, CINE OR VIDEO, [id number] 16:14:00Reason for Exam:->esrd; eval for renal txpFINAL REPORT EXAM: Voiding cystourethrogram INDICATION: 57-year-old man with end-stage renal disease for renal transplant evaluation. COMPARISON: None. FINDINGS: Material Preparation Worker film shows vascular calcifications in the pelvis. Approximately 300 cc of Isovue-300 contrast was instilled into the bladder in a retrograde fashion when the patient felt the need to void. The bladder is normal in contour. There is no vesicoureteral reflux. There is no extravasation. Patient voided spontaneously. Tortuosity of the penile urethra. Urethra is otherwise unremarkable. There is no postvoid residual. Fluoroscopy time: 68 secondsNumber of images: 6 IMPRESSION:Tortuous penile urethra. Otherwise, normal voiding cystourethrogram. Signed: Blanca Campbell MDReport Verified Date/Time: 12/27/2017 16:14:38 Reading Location: [address] Radiology Reading Room , CHEST, 2 VIEWS 2017-12-27 15:33:00Reason for Exam:->esrd; eval for renal txpFINAL REPORT TECHNIQUE: Frontal and lateral views of the chest. INDICATION: 57-year-old man with end-stage renal disease for renal transplant evaluation. COMPARISON: None. FINDINGS: LINES/TUBES: None. LUNGS: Patchy o pacity in the right lower lung zone. PLEURA: Bilateral pleural effusions, small- moderate on the left and small on the right. HEART AND MEDIASTINUM: The cardiome diastinal silhouette is enlarged. Atherosclerotic calcifications in the tortuous thoracic aorta. SOFT TISSUES AND BONES: Degenerative changes of the visualized spine. Soft tissues are unremarkable. IMPRESSION:Bilateral pleural effusions, s mall-moderate on the left and small on the right. Right lower lung zone opacity may represent atelectasis, however pneumonia cannot be excluded. Signed: Likhari , Gauruv MDReport Verified Date/Time: 12/27/2017 15:33:02 Reading Location: [address] Radiology Reading Room REHENSIVE METABOLIC [id number] 14:34:00 * Test Item Value Reference Range Comments TOTAL PROTEIN (BEAKER) (test jdha=049) 7.9 gm/dL 6.0-8.3 ALBUMIN (BEAKER) (test hvnh=5586) 4.4 g/dL 3.5-5.0 ALKALINE PHOSPHATASE (BEAKER) (test zlrw=810) 106 U/L 40-150 BILIRUBIN TOTAL (BEAKER) (test zkfm=073) 0.7 mg/dL 0.2-1.2 SODIUM (BEAKER) (test pahp=139) 139 meq/L 136-145 POTASSIUM (BEAKER) (test twsi=068) 6.1 meq/L 3.5-5.1 CHLORIDE (BEAKER) (test vumf=584) 100 meq/L 98-107 CO2 (BEAKER) (test htmw=832) 28 meq/L 22-29 BLOOD UREA NITROGEN (BEAKER) (test rebr=297) 54 mg/dL 7-21 CREATININE (BEAKER) (test rwcc=585) 6.81 mg/dL 0.57-1.25 GLUCOSE RANDOM (BEAKER) (test gpbo=475) 73 mg/dL 70-105 CALCIUM (BEAKER) (test cvxs=197) 9.4 mg/dL 8.4-10.2 AST (SGOT) (BEAKER) (test gznp=046) 17 U/L 5-34 ALT (SGPT) (BEAKER) (test tlcc=206) 15 U/L 6-55 EGFR (BEAKER) (test ebwl=7060) 8 mL/min/1.73 sq m ESTIMATED GFR IS NOT ACCURATE CREATININE CLEARANCE IN PREDICTING GLOMERULAR FILTRATION RATE. ESTIMATED GFR IS NOT APPLICABLE FOR DIALYSIS PATIENTS. HEMOGLOBIN [id number] 14:30:00* Test Item Value Reference Range Comments HEMOGLOBIN A1C (BEAKER) (test rzky=003) < % 4.3-6.1 [id number] 13:28:00* Test Item Value Reference Range Comments PROSTATE SPECIFIC ANTIGEN (BEAKER) (test dtbc=990) 1.0 ng/mL 0.0-4.0 HEPATITIS B SURFACE [id number] 13:07:00* Test Item Value Reference Range Comments HEPATITIS B SURFACE ANTIGEN (2) (BEAKER) (test fwxa=9061) Nonreactive Nonreactive HEPATITIS B SURFACE [id number] 13:07:00* Test Item Value Reference Range Comments HEPATITIS B SURFACE ANTIBODY (BEAKER) (test iuwk=017) 99.2 mIU/mL <8.0 HEPATITIS B CORE ANTIBODY, [id number] 13:07:00* Test Item Value Reference Range Comments HEPATITIS B CORE IGM ANTIBODY (BEAKER) (test fqch=800) Nonreactive Nonreactive HEPATITIS C [id number] 13:07:00* Test Item Value Reference Range Comments HEPATITIS C ANTIBODY (BEAKER) (test tpwf=305) Nonreactive Nonreactive HIV-1 ANTIGEN WITH HIV-1/2 [id number] 13:07:00* Test Item Value Reference Range Comments HIV-1 ANTIGEN WITH HIV 1\T\2 ANTIBODY (2) (BEAKER) (test hrsz=2354) Nonreactive Nonreactive URINALYSIS W/ [id number] 12:52:00* Test Item Value Reference Range Comments COLOR (BEAKER) (test ccpu=071) Yellow CLARITY (BEAKER) (test qauz=553) Clear SPECIFIC GRAVITY UA (BEAKER) (test wbbf=016) 1.012 1.001-1.035 PH UA (BEAKER) (test fyto=118) 7.5 5.0-8.0 PROTEIN UA (BEAKER) (test fcgu=650) 300 mg/dL Negative GLUCOSE UA (BEAKER) (test zfwr=106) Negative Negative KETONES UA (BEAKER) (test jbjh=662) Negative Negative BILIRUBIN UA (BEAKER) (test cspp=554) Negative Negative BLOOD UA (BEAKER) (test malf=594) Negative Negative NITRITE UA (BEAKER) (test jbkc=632) Negative Negative LEUKOCYTE ESTERASE UA (BEAKER) (test oxqs=959) Negative Negative UROBILINOGEN UA (BEAKER) (test bnhm=985) 0.2 mg/dL 0.2-1.0 RBC UA (BEAKER) (test issu=173) 1 /HPF WBC UA (BEAKER) (test pdbo=135) 2 /HPF MUCUS (BEAKER) (test pzoz=7462) Rare SQUAMOUS EPITHELIAL (BEAKER) (test ccwg=604) < /HPF SOURCE(BEAKER) (test htzl=2118) PTH, [id number] 12:49:00* Test Item Value Reference Range Comments PARATHYROID HORMONE INTACT (BEAKER) (test ihot=555) 301.7 pg/mL 8.5-72.5 URIC [id number] 12:44:00* Test Item Value Reference Range Comments URIC ACID (BEAKER) (test yfjq=918) 5.6 mg/dL 2.6-7.2 [id number] 12:44:00* Test Item Value Reference Range Comments PHOSPHORUS (BEAKER) (test jzga=838) 4.6 mg/dL 2.3-4.7 GAMMA GLUTAMYL TRANSFERASE (GGT)2017-12-27 12:44:00* Test Item Value Reference Range Comments GAMMA GLUTAMYL TRANSFERASE (BEAKER) (test pfmo=279) 24 U/L 9-64 LACTATE DEHYDROGENASE (LDH)2017-12-27 12:44:00* Test Item Value Reference Range Comments LACTATE DEHYDROGENASE (BEAKER) (test qtlo=052) 231 U/L 125-220 [id number] 12:20:00* Test Item Value Reference Range Comments PROTIME (BEAKER) (test tzzh=656) 14.6 seconds 11.7-14.7 INR (BEAKER) (test whyw=941) 1.1 <=5.9 PARTIAL THROMBOPLASTIN TIME (BEAKER) (test iyqf=232) 34.3 seconds 22.5-36.0 RECOMMENDED COUMADIN/WARFARIN INR THERAPY RANGESSTANDARD DOSE: 2.0 - 3.0 Inclu rajan: PROPHYLAXIS for venous thrombosis, systemic embolization; TREATMENT for gasper ous thrombosis and/or pulmonary embolus.HIGH RISK: Target INR is 2.5-3.5 for pat ients with mechanical heart valves.CBC W/PLT COUNT & AUTO [id number] 12:09:00* Test Item Value Reference Range Comments WHITE BLOOD CELL COUNT (BEAKER) (test qkzi=903) 6.4 K/ L 3.5-10.5 RED BLOOD CELL COUNT (BEAKER) (test iauj=311) 3.59 M/ L 4.63-6.08 HEMOGLOBIN (BEAKER) (test grpe=300) 10.4 GM/DL 13.7-17.5 HEMATOCRIT (BEAKER) (test vjzf=218) 35.0 % 40.1-51.0 MEAN CORPUSCULAR VOLUME (BEAKER) (test hwfs=195) 97.5 fL 79.0-92.2 MEAN CORPUSCULAR HEMOGLOBIN (BEAKER) (test jtxb=104) 29.0 pg 25.7-32.2 MEAN CORPUSCULAR HEMOGLOBIN CONC (BEAKER) (test tssj=722) 29.7 GM/DL 32.3-36.5 RED CELL DISTRIBUTION WIDTH (BEAKER) (test cksk=422) 15.7 % 11.6-14.4 PLATELET COUNT (BEAKER) (test mtic=311) 256 K/CU MM 150-450 MEAN PLATELET VOLUME (BEAKER) (test ncxi=235) 11.4 fL 9.4-12.4 NUCLEATED RED BLOOD CELLS (BEAKER) (test hjox=463) 0 /100 WBC 0-0 NEUTROPHILS RELATIVE PERCENT (BEAKER) (test lggs=942) 67 % LYMPHOCYTES RELATIVE PERCENT (BEAKER) (test shqp=613) 17 % MONOCYTES RELATIVE PERCENT (BEAKER) (test xnrm=816) 9 % EOSINOPHILS RELATIVE PERCENT (BEAKER) (test kbbr=661) 6 % BASOPHILS RELATIVE PERCENT (BEAKER) (test jpcv=365) 1 % NEUTROPHILS ABSOLUTE COUNT (BEAKER) (test zect=888) 4.27 K/ L 1.78-5.38 LYMPHOCYTES ABSOLUTE COUNT (BEAKER) (test eepj=431) 1.09 K/ L 1.32-3.57 MONOCYTES ABSOLUTE COUNT (BEAKER) (test nybj=211) 0.56 K/ L 0.30-0.82 EOSINOPHILS ABSOLUTE COUNT (BEAKER) (test optt=264) 0.36 K/ L 0.04-0.54 BASOPHILS ABSOLUTE COUNT (BEAKER) (test qywj=027) 0.09 K/ L 0.01-0.08 IMMATURE GRANULOCYTES-RELATIVE PERCENT (BEAKER) (test wiwy=6195) 0 % 0-1
[2019-10-15] MEDS ORDERED: MILLIPRED DP5 MG (12:33)
[2019-10-15] MEDS ORDERED: ULTRAM 50MG50 MG (12:33)
[2019-10-15] MEDS ORDERED: CALCIUM ACETAT667 M1 (12:33)
[2019-10-15] MEDS ORDERED: MINOXIDIL2.5 MG (12:33)
[2019-10-15] MEDS ORDERED: HYDRALAZINE HC100 MG (12:33)
[2019-10-15] MEDS ORDERED: [UNRECOGNIZED DRUG - OTHER] (12:33)
[2019-10-15] MEDS ORDERED: LOSARTAN POTAS100 MG (12:33)
[2019-10-15] MEDS ORDERED: LABETALOL HCL200 MG (12:33)
[2019-10-15] MEDS ORDERED: POLYMYXIN B-TMP10 ML (12:33)
[2019-10-15] MEDS ORDERED: FELODIPINE ER10 MG (12:33)
[2019-10-15] MEDS ORDERED: CLONIDINE HCL0.1 MG (12:33)
[2019-10-15 12:47] LABS: BASOPHILS # (AUTO) 0.1 (0.0-0.1); BASOPHILS % 0.9 % (0.0-1.0); EOSINOPHILS # (AUTO) 0.2 (0.0-0.4); EOSINOPHILS % 3.6 % (0.0-6.0); HEMOGLOBIN 10.3 g/dL (14.0-18.0); LYMPHOCYTES # (AUTO) 0.6 (1.0-3.2); LYMPHOCYTES % 10.9 % (18.0-39.1); MEAN CORPUSCULAR HEMOGLOBIN 30.4 pg (28-32); MEAN CORPUSCULAR HGB CONC 32.2 g/dL (31-35); MEAN CORPUSCULAR VOLUME 94.4 fL (81-99); MONOCYTES # (AUTO) 0.6 (0.2-0.8); MONOCYTES % 10.7 % (4.4-11.3); NEUTROPHILS # (AUTO) 3.9 (2.1-6.9); NEUTROPHILS % 73.7 % (38.7-80.0); PLATELET COUNT 164 x10e3/uL (140-360); RED BLOOD COUNT 3.39 x10e6/uL (4.3-5.7); RED CELL DISTRIBUTION WIDTH 13.8 % (11.7-14.4)
[2019-10-15 12:58] LABS: INR 0.91; PROTHROMBIN TIME 12.8 seconds (11.9-14.5)
[2019-10-15 12:59] LABS: PARTIAL THROMBOPLASTIN TIME 29.2 seconds (23.8-35.5)
[2019-10-15 13:07] LABS: ALBUMIN 4.1 g/dL (3.5-5.0); ALBUMIN/GLOBULIN RATIO 1.2 (0.8-2.0); ANION GAP 15.1 mmol/L (8-16); CALCIUM 8.4 mg/dL (8.4-10.2); CREATININE, SERUM 6.42 mg/dL (0.72-1.25); POTASSIUM 4.1 mmol/L (3.5-5.1)
[2019-10-15 13:14] LABS: CREATINE KINASE MB 4.7 ng/mL (0-5.0)
[2019-10-15 13:32] LABS: MAGNESIUM 1.9 MG/DL (1.3-2.1); PHOSPHORUS 3.9 MG/DL (2.3-4.7)
--- NOTE | 2019-10-15 13:41 | Diagnostic Imaging Report ---
CT BRAIN WO HISTORY: Weakness, altered mental status COMPARISON: None. TECHNIQUE: Noncontrast axial scans were obtained from skull base to the vertex. Coronal and sagittal reconstructions obtained from the axial data. One or more of the following dose reduction techniques were used: Automated exposure control, adjustment of the mA and/or kV according to patient size, and/or utilization of iterative reconstruction technique. DISCUSSION: Scalp/Skull: Unremarkable. Brain sulci: Mildly prominent. Ventricles: Compensatory dilatation. Extra-axial spaces: No masses or fluid collections. Carotid siphon calcifications. Parenchyma: Mild periventricular white matter hypodensities are likely chronic microvascular ischemic changes. No mass, hemorrhage, or large vascular territory acute infarct. Dural sinuses: No abnormal densities. Sellar/Suprasellar region: Intact. Skull base: Intact. Incidental findings: Bilateral ocular lens replacement. Scattered punctate calcifications in the right ocular globe may be related to prior infection or trauma. IMPRESSION: 1. No acute intracranial abnormalities. 2. Mild generalized cerebral volume loss. Mild supratentorial chronic microvascular ischemic change. Signed by: Dr. Connor Suggs M.D. on 10/15/2019 1:38 PM
--- NOTE | 2019-10-15 13:47 | Diagnostic Imaging Report ---
EXAMINATION: CHEST SINGLE (PORTABLE) INDICATION: Weakness COMPARISON: None FINDINGS: LINES/TUBES:Back or EKG LUNGS:The lungs are moderately inflated. There is left basilar opacity silhouetting the left hollis diaphragm. PLEURA:Possible small left pleural effusion. No pneumothorax. MEDIASTINUM:The cardiomediastinal silhouette appears mildly enlarged, possibly due to portable technique BONES/SOFT TISSUES:No acute osseous injury. ABDOMEN:No free air under the diaphragm. IMPRESSION: Left basilar opacity, more likely subsegmental atelectasis than superimposed aspiration or pneumonia. Possible small left pleural effusion. Signed by: Susi Guo MD on 10/15/2019 1:44 PM
== END 2019-10-15 15:45 | disposition home or self-care (01) ==
LOC: ER 12:04
DX: R53.1 Weakness (principal); R42 Dizziness and giddiness; I12.0 Hypertensive chronic kidney disease with stage 5 chronic kidney disease or end stage renal disease; E11.22 Type 2 diabetes mellitus with diabetic chronic kidney disease; N18.6 End stage renal disease; Z99.2 Dependence on renal dialysis; I50.9 Heart failure, unspecified; E78.5 Hyperlipidemia, unspecified
CPT/HCPCS: 36415; 70450; 71045; 80053; 82550; 82553; 83735; 83880; 84100; 84484; 85025; 85610; 85730; 93005; 99284